=== PATIENT | male | born 1945 ===

== ENCOUNTER 2017-12-28 15:09 | Emergency (ER) | payer OTHER, MEDICARE ==
[2017-12-28 15:35] VITALS: BP 171/86; PULSE 104; RESP 16; TEMP 97.6; O2SAT 95
--- NOTE | 2017-12-28 16:46 | ED PDOC ---
HPI: Male Pain Time Seen by Provider: 12/28/17 15:50 Chief Complaint (Nursing): Abdominal Pain Chief Complaint (Provider): dysuria History Per: Patient History/Exam Limitations: no limitations Onset/Duration Of Symptoms: Persistent, Worse Since (x1) Current Symptoms Are (Timing): Still Present Additional Complaint(s): 72 year old male referred to emergency department by PMD for an evaluation of intermittent difficulty urinating associated with urgency and lower abdominal "fullness" worsening today. PMD: Curt Yao Urologist: Reji Brady MD Past Medical History Reviewed: Nursing Documentation, Vital Signs Vital Signs: Last Vital Signs Temp 97.6 F 12/28/17 15:31 Pulse 104 H 12/28/17 15:31 Resp 16 12/28/17 15:31 BP 171/86 H 12/28/17 15:31 Pulse Ox 95 12/28/17 15:31 - Family History Family History: States: Unknown Family Hx - Social History Current smoker - smoking cessation education provided: No Alcohol: None Drugs: Denies - Home Medications Home Medications: Ambulatory Orders Medication Instructions Recorded Ciprofloxacin HCl [Cipro] 500 mg PO BID #20 tab 12/28/17 Tamsulosin [Flomax] 0.4 mg PO DAILY #5 cap 12/28/17 - Allergies Allergies/Adverse Reactions: Allergies Allergy/AdvReac Type Severity Reaction Status Date / Time Sulfa (Sulfonamide Allergy ANAPHYLAXIS Verified 12/28/17 15:31 Antibiotics) Review of Systems ROS Statement: Except As Marked, All Systems Reviewed And Found Negative Gastrointestinal: Positive for: Abdominal Pain (lower fullness) Genitourinary Male: Positive for: Dysuria (with urgency) Physical Exam - Reviewed Nursing Documentation Reviewed: Yes Vital Signs Reviewed: Yes - Physical Exam Gastrointestinal/Abdominal: Positive for: Distended (suprapubic) Neurologic/Psych: Positive for: Alert - ECG O2 Sat by Pulse Oximetry: 95 (RA) Pulse Ox Interpretation: Normal Medical Decision Making Medical Decision Making: Initial Impression: Dysuria Time: 1640 --Urinary catheterization performed by provider. 16 Yi kwong catheter placed with 1200cc of clear, cristal urine removed. Scribe Attestation: Documented by Ting Raines, acting as a scribe for Conner Mena MD. Provider Scribe Attestation: All medical record entries made by the Scribe were at my direction and personally dictated by me. I have reviewed the chart and agree that the record accurately reflects my personal performance of the history, physical exam, medical decision making, and the department course for this patient. I have also personally directed, reviewed, and agree with the discharge instructions and disposition. Disposition - Clinical Impression Clinical Impression: Urinary retention - Patient ED Disposition Is Patient to be Admitted: No Counseled Patient/Family Regarding: Studies Performed, Diagnosis, Need For Followup, Rx Given - Disposition Referrals: Reji Brady MD [Medical Doctor] - Disposition: Routine/Home Disposition Time: 17:22 Condition: FAIR Prescriptions: Ciprofloxacin HCl [Cipro] 500 mg PO BID #20 tab Tamsulosin [Flomax] 0.4 mg PO DAILY #5 cap Instructions: Urinary Retention Forms: [facility] [employer] [facility] (Faroese) Print Language: BURMESE
== END 2017-12-28 18:21 | disposition home or self-care (01) ==
LOC: H.ER 15:09
DX: R33.9 Retention of urine, unspecified (principal)

== ENCOUNTER 2018-03-05 23:43 | Emergency (ER) | payer MEDICARE, OTHER ==
[2018-03-05 23:58] VITALS: RESP 18
[2018-03-06 01:50] LABS: BASO % 0.2 % (0.0-2.0); EOS # 0.1 K/uL (0.0-0.7); EOS % 0.6 % (0.0-4.0); HEMOGLOBIN 9.9 g/dL (12.0-18.0); LYMPH # 0.9 K/uL (1.0-4.3); LYMPH % 10.3 % (20.0-40.0); MEAN CELL VOLUME 83.7 fl (80.0-94.0); MEAN CORPUSCULAR HEMOGLOBIN 27.5 pg (27.0-31.0); MEAN CORPUSCULAR HGB CONC 32.8 g/dL (33.0-37.0); MEAN PLATELET VOLUME 7.2 fl (7.2-11.7); MONO # 0.6 K/uL (0.0-0.8); MONO % 7.1 % (0.0-10.0); NEUT % 81.8 % (50.0-75.0); RBC 3.6 Mil/uL (4.40-5.90); RED CELL DISTRIBUTION WIDTH 15.9 % (11.5-14.5); WHITE BLOOD COUNT 8.6 K/uL (4.8-10.8)
[2018-03-06 02:11] LABS: BLOOD UREA NITROGEN 29 mg/dl (9-20); CALCIUM 8.9 mg/dL (8.4-10.2); GFR AFRICAN-AMERICAN > 60; GFR NON-AFRICAN AMERICAN > 60
[2018-03-06] MEDS ORDERED: Potassium Chloride 20 mEq ER Tab PO ONE ×2 (02:17→03:06)
--- NOTE | 2018-03-06 02:41 | ED PDOC ---
HPI: Male Pain Time Seen by Provider: 03/06/18 00:15 Chief Complaint (Nursing): Male Genitourinary Chief Complaint (Provider): Difficulty Urinating History Per: Patient History/Exam Limitations: no limitations Onset/Duration Of Symptoms: Hrs Current Symptoms Are (Timing): Still Present Severity: Moderate Quality Of Discomfort: Pressure Associated Symptoms: Urinary Symptoms Additional History Per: Patient Additional Complaint(s): 72 y/o male who complains of difficulty urinating that started yesterday evening. He complains that he has to strain with urination but has suprapubic pain and dribbling. History of enlarged prostate and sees Dr. Brady. No vomiting, back pain, or other complaint. Past Medical History Vital Signs: Last Vital Signs Temp 99.9 F H 03/05/18 23:53 Pulse 115 H 03/05/18 23:53 Resp 18 03/05/18 23:53 BP 118/62 03/05/18 23:53 Pulse Ox 98 03/05/18 23:53 - Medical History PMH: Benign Prostatic Hyperplasia, HTN Other PMH: BPH - Surgical History Surgical History: No Surg Hx - Family History Family History: States: Unknown Family Hx - Social History Current smoker - smoking cessation education provided: No Ex-Smoker (has not smoked in the last 12 months): No Alcohol: None Drugs: Denies - Immunization History Hx Tetanus Toxoid Vaccination: No Hx Influenza Vaccination: No Hx Pneumococcal Vaccination: No - Home Medications Home Medications: Ambulatory Orders Medication Instructions Recorded Ciprofloxacin HCl [Cipro] 500 mg PO BID #20 tab 12/28/17 Tamsulosin [Flomax] 0.4 mg PO DAILY #5 cap 12/28/17 Ciprofloxacin HCl [Cipro] 500 mg PO BID #14 tablet 03/06/18 - Allergies Allergies/Adverse Reactions: Allergies Allergy/AdvReac Type Severity Reaction Status Date / Time Sulfa (Sulfonamide Allergy RASH Verified 03/05/18 23:58 Antibiotics) Review of Systems ROS Statement: Except As Marked, All Systems Reviewed And Found Negative Gastrointestinal: Positive for: Abdominal Pain Genitourinary Male: Positive for: Other (difficulty urinating) Physical Exam - Physical Exam Appears: Positive for: Well, Non-toxic, No Acute Distress Skin: Positive for: Normal Color, Warm, Dry Cardiovascular/Chest: Positive for: Regular Rate, Rhythm Respiratory: Positive for: Normal Breath Sounds Gastrointestinal/Abdominal: Positive for: Bowel Sounds (normal), Soft, Tenderness (suprapubic). Negative for: Distended Male Genital Exam: Positive for: other (urinating into diaper on exam) Neurologic/Psych: Positive for: Alert, Oriented - Laboratory Results Result Diagrams: 03/06/18 01:44 03/06/18 01:44 - ECG O2 Sat by Pulse Oximetry: 98 - Progress Re-evaluation Time: 07:10 Condition: Re-examined, Improved Medical Decision Making Medical Decision Making: Impression: Difficulty Urinating Differential Diagnosis: UTI, BPH, obstructive uropathy Plan: - Bladder Scan - 600mL shown - Flomax & Potassium Supplementation - UA On exam, patient able to urinate in ED and does not have absolute urinary retention. UA shows UTI. Attempted to place catheter but was unsuccessful. 06:08: Spoke with Dr. Brady who will come to the department and place a suprapubic catheter. 0710 Dr Brady performed suprapubic cystostomy in ED. Recommends cipro rx and discharge home. Scribe Attestation Documented by Yas Hook acting as a scribe for Kaylan Dong MD. Scribe Attestation All medical record entries made by the Scribe were at my direction and personally dictated by me. I have reviewed the chart and agree that the record accurately reflects my personal performance of the history, physical exam, medical decision making, and the department course for this patient. I have also personally directed, reviewed, and agree with the discharge instructions and disposition. Disposition - Clinical Impression Clinical Impression: Urinary tract infection, Urinary retention - Patient ED Disposition Is Patient to be Admitted: No Doctor Will See Patient In The: Office Counseled Patient/Family Regarding: Studies Performed, Diagnosis, Need For Followup - Disposition Referrals: Reji Brady MD [Medical Doctor] - Disposition: Routine/Home Disposition Time: 07:17 Condition: GOOD Additional Instructions: Take your medications as instructed. Follow up with your PCP in 2 days. Prescriptions: Ciprofloxacin HCl [Cipro] 500 mg PO BID #14 tablet Instructions: Urinary Tract Infections in Adults, Suprapubic Cystostomy, Urinary Retention Print Language: NEPALI
[2018-03-06] MEDS ORDERED: Morphine 4 MG/ML VIAL IVP ONE (03:58)
[2018-03-06] MEDS ORDERED: Morphine 4 MG/ML VIAL ONE (04:04)
[2018-03-06 04:39] VITALS: BP 138/72; PULSE 96; TEMP 97.6
[2018-03-06 04:49] VITALS: O2SAT 98
[2018-03-06] MEDS ORDERED: Povidone Iodine Topical 10% Sol ONE (06:50)
[2018-03-06] MEDS ORDERED: Lidocaine 1% Inj (20ml) ONE (06:58)
== END 2018-03-06 07:37 | disposition home or self-care (01) ==
LOC: H.ER 23:43
DX: N39.0 Urinary tract infection, site not specified (principal); N40.1 Benign prostatic hyperplasia with lower urinary tract symptoms; I10 Essential (primary) hypertension
CPT/HCPCS: 80048; 85025; 96374; 99283; J2270

== ENCOUNTER 2018-03-21 08:39 | Day surgery (SDC) | payer OTHER ==
[2018-03-15 08:59] VITALS: BMI 26.5
[2018-03-21] MEDS ORDERED: cefTRIAXone (Rocephin) 1 gm Inj IVPB ONE (10:23)
[2018-03-21] MEDS ORDERED: Lidocaine 2% Jelly (Uro-Jet) ONE (11:41)
[2018-03-21] MEDS ORDERED: Propofol 10 mg/ml Inj (20 ML) ONE ×2 (12:02→12:16)
[2018-03-21] MEDS ORDERED: Etomidate 20 mg/10ml Inj IV ONE (12:02)
[2018-03-21] MEDS ORDERED: Lidocaine 2% Jelly (5 ml) TOP ONE (12:05)
[2018-03-21] MEDS ORDERED: Phenylephrine 10 mg/ml Inj ONE (12:17)
[2018-03-21] MEDS ORDERED: Lidocaine 2% Jelly (Uro-Jet) TOP ONE (12:20)
[2018-03-21] MEDS ORDERED: Lactated Ringer's 1,000 ML IV ONE (12:20)
[2018-03-21] MEDS ORDERED: HYDROmorphone 0.5 mg/0.5 ml ISec IVP PRN (13:12)
[2018-03-21 15:14] VITALS: PULSE 93; O2SAT 96
[2018-03-21 15:19] VITALS: BP 104/59; RESP 18; TEMP 98.4
--- NOTE | 2018-03-21 22:06 | OP ---
PROCEDURE DATE: 03/21/2018 PREOPERATIVE DIAGNOSIS: Urinary retention. POSTOPERATIVE DIAGNOSIS: Urinary retention. PROCEDURE PERFORMED ON THE PATIENT: Cystoscopy with transurethral resection of prostate. DESCRIPTION OF PROCEDURE: The patient was placed on the operating room table in dorsal lithotomy position. He currently has a suprapubic tube in place from recent history of acute urinary retention. Following this and introducing the cystoscope and met resistance and so I used Jose sounds to calibrate the distal urethra to a size 26-Montenegrin. At this time, I inserted a 24-Montenegrin continuous flow resectoscope. At the level of the verumontanum, there was noted to be some regrowth of prostate, some on the 7 o'clock position and most of it is on the 2-4 o'clock position. I resected those areas widely cleared and removed all the fragments. Ureteral orifices were never in danger at this time. Verumontanum was circumferentially intact and did not bring the resection back to that area, removed the fragments. Estimated blood loss to be less than 20 mL, cauterized all the areas that I resected and then I removed the resectoscope, inserted a #22 three-way Lema at this time that was in good position and then I removed the suprapubic tube that was in preoperatively and the patient was taken from the operating room in good condition. Reji Brady MD
== END 2018-03-21 16:00 | disposition home or self-care (01) ==
LOC: H.OPSURG 08:39
PROVIDERS: ATTEND Urology
DX: R33.8 Other retention of urine (principal); E11.9 Type 2 diabetes mellitus without complications; I10 Essential (primary) hypertension; M54.9 Dorsalgia, unspecified
CPT/HCPCS: 53899; 82948; 88305; J0696; J2001; J2370; J2704; J3010; J7120

== ENCOUNTER 2018-03-25 16:47 | Inpatient (IN) | payer OTHER, MEDICARE ==
[2018-03-25 16:47] VITALS: BMI 26.5
[2018-03-25 18:17] LABS: BASO % 0.2 % (0.0-2.0); EOS % 0.2 % (0.0-4.0); HEMOGLOBIN 8.4 g/dL (12.0-18.0); LYMPH # 0.5 K/uL (1.0-4.3); LYMPH % 5.7 % (20.0-40.0); MEAN CELL VOLUME 81.3 fl (80.0-94.0); MEAN CORPUSCULAR HEMOGLOBIN 26.4 pg (27.0-31.0); MEAN CORPUSCULAR HGB CONC 32.5 g/dL (33.0-37.0); MEAN PLATELET VOLUME 7.4 fl (7.2-11.7); MONO # 0.7 K/uL (0.0-0.8); MONO % 8.5 % (0.0-10.0); NEUT # 7.5 K/uL (1.8-7.0); NEUT % 85.4 % (50.0-75.0); PLATELET COUNT 156 K/uL (130-400); RBC 3.18 Mil/uL (4.40-5.90); RED CELL DISTRIBUTION WIDTH 16.8 % (11.5-14.5); WHITE BLOOD COUNT 8.8 K/uL (4.8-10.8)
--- NOTE | 2018-03-25 18:19 | ED PDOC ---
HPI: Fever Fever Onset Was: 03/21/18 The Fever Was Measured: Rectal What Antipyretic Given Prior To Arrival: Acetaminophen, Ibuprofen Recent Sick Contacts: No Does Patient Have Hx Of Febrile Seizures: No Did The Patient Have A Seizure Today: No Symptoms Associated With Fever: Cough Past Medical History Reviewed: Nursing Documentation, Vital Signs, Unable To Obtain Vital Signs: Last Vital Signs Temp 98.4 F 03/25/18 17:07 Pulse 96 H 03/25/18 17:07 Resp 20 03/25/18 17:07 BP 122/55 L 03/25/18 17:07 Pulse Ox 96 03/25/18 18:19 - Medical History PMH: Arthritis (hands), Benign Prostatic Hyperplasia, HTN Denies: Chronic Kidney Disease - Family History Family History: States: Unknown Family Hx - Immunization History Hx Tetanus Toxoid Vaccination: No Hx Influenza Vaccination: No Hx Pneumococcal Vaccination: No - Home Medications Home Medications: Ambulatory Orders Medication Instructions Recorded Ciprofloxacin [Cipro] 500 mg PO Q12 03/21/18 Glimepiride [Amaryl] 1 mg PO DIN 03/25/18 MetFORMIN [glucoPHAGE] 1,000 mg PO BID 03/25/18 Multivitamin [Multi-Vitamin Daily] 1 tab PO DAILY 03/25/18 Tamsulosin [Flomax] 0.4 mg PO HS 03/25/18 Valsartan/Hydrochlorothiazide 1 tab PO DAILY 03/25/18 [Diovan Hct 160-25 mg Tablet] amLODIPine [Norvasc] 5 mg PO DAILY 03/25/18 - Allergies Allergies/Adverse Reactions: Allergies Allergy/AdvReac Type Severity Reaction Status Date / Time Sulfa (Sulfonamide Allergy RASH Verified 03/25/18 17:06 Antibiotics) Review of Systems ROS Statement: Except As Marked, All Systems Reviewed And Found Negative Constitutional: Positive for: Fever Respiratory: Positive for: Cough Physical Exam - Reviewed Nursing Documentation Reviewed: Yes Vital Signs Reviewed: Yes - Physical Exam Appears: Positive for: Well, Non-toxic, No Acute Distress. Negative for: Uncomfortable Head Exam: Positive for: ATRAUMATIC, NORMAL INSPECTION, NORMOCEPHALIC Skin: Positive for: Normal Color, Warm, Dry Eye Exam: Positive for: Normal appearance Neck: Positive for: Normal, Painless ROM, Supple. Negative for: Decreased ROM Cardiovascular/Chest: Positive for: Regular Rate, Rhythm. Negative for: Chest Non Tender, Edema, Gallop, Bradycardia, Tachycardia Respiratory: Positive for: Normal Breath Sounds. Negative for: Decreased Breath Sounds, Accessory Muscle Use, Crackles, Rales, Rhonchi, Stridor, Wheezing , Respiratory Distress Pulses-Carotid (L): 2+ Pulses-Carotid (R): 2+ Pulses-Radial (L): 2+ Pulses-Radial (R): 2+ - Laboratory Results Result Diagrams: 03/25/18 18:11 03/25/18 18:11 - ECG O2 Sat by Pulse Oximetry: 96 Disposition - Clinical Impression Clinical Impression: Urinary tract infection, SIRS (systemic inflammatory response syndrome), CHF ( congestive heart failure) Discussed With Dr.: Reji Brady (Request bloodwork and ABD CT) Doctor Will See Patient In The: ED - Disposition Disposition Time: 09:51 Condition: FAIR - Pt Status Changed To: Hospital Disposition Of: Inpatient - Admit Certification Admit to Inpatient:: After my assessment, the patient will require hospitalization for at least two midnights. This is because of the severity of symptoms shown, intensity of services needed, and/or the medical risk in this patient being treated as an outpatient.
[2018-03-25 18:23] LABS: ALBUMIN 2.9 g/dL (3.5-5.0); BLOOD UREA NITROGEN 34 mg/dl (9-20); CALCIUM 8.4 mg/dL (8.4-10.2); GFR AFRICAN-AMERICAN > 60; GFR NON-AFRICAN AMERICAN > 60
[2018-03-25 18:24] LABS: ALB/GLOB RATIO 0.8 (1.0-2.1); ALT/SGPT 42 U/L (21-72); AST/SGOT 30 U/L (17-59)
[2018-03-25] MEDS ORDERED: Sodium Chloride 0.9% 1,000 ML IV SCH (18:30)
[2018-03-25 19:11] LABS: SQUAMOUS EPITHIAL 1 /hpf (0-5); URINE BACTERIA OCC (<OCC); URINE BILIRUBIN NEGATIVE (NEGATIVE); URINE CLARITY CLOUDY (Clear); URINE COLOR YELLOW (YELLOW); URINE GLUCOSE (UA) NEG (Normal); URINE LEUKOCYTE ESTERASE LARGE Leu/uL (Negative); URINE PROTEIN 100 mg/dL (NEGATIVE); URINE UROBILINOGEN 0.2-1.0 mg/dL (0.2-1.0)
[2018-03-25 19:12] LABS: URINE BLOOD LARGE (NEGATIVE)
[2018-03-25 19:19] LABS: LYMPHOCYTE 7 % (20-50); MONOCYTE 7 % (0-10); NEUTROPHIL 86 % (42-75); TOTAL CELLS COUNTED 100
[2018-03-25 19:20] LABS: ANISOCYTOSIS SLIGHT; HYPOCHROMIC SLIGHT; OVALOCYTES SLIGHT; PLATELET ESTIMATE NORMAL (NORMAL); SCHISTOCYTES SLIGHT
[2018-03-25] MEDS ORDERED: Iohexol 300 100 ML IJ ONE (19:58)
[2018-03-25] MEDS ORDERED: Sodium Chloride 0.9% 50 ML IV ONE (19:58)
[2018-03-25] MEDS ORDERED: cefTRIAXone 2 GM in Sodium Chloride 0.9% 100 ML IVPB SCH (21:30)
[2018-03-25] MEDS ORDERED: cefTRIAXone 2 GM in Sodium Chloride 0.9% 100 ML IVPB STA (21:31)
--- NOTE | 2018-03-25 21:56 | CT ---
EXAM: CT Abdomen and Pelvis With Intravenous Contrast EXAM DATE/TIME: 03/25/2018 7:50 PM CLINICAL HISTORY: 72 years old, male; Signs and symptoms; Fever; Prior surgery; Surgery date: 1-6 months; Surgery type: Greenlight laser; Patient HX: Benign prostatic hyperplasia; Additional info: R/O infx TECHNIQUE: Axial computed tomography images of the abdomen and pelvis with intravenous contrast. All CT scans at this facility use one or more dose reduction techniques, viz.: automated exposure control; ma/kV adjustment per patient size (including targeted exams where dose is matched to indication; i.e. head); or iterative reconstruction technique. Coronal and sagittal reformatted images were created and reviewed. CONTRAST: 90 mL of [id number] administered intravenously. COMPARISON: No relevant prior studies available. FINDINGS: LIMITATIONS: Moderate streak/motion artifact. LUNG BASES: Left diaphragm is moderately elevated and PLEURAL SPACE: Small to moderate bilateral pleural effusions. HEART: Heart appears mildly enlarged. ABDOMEN: LIVER: 2 small low density liver lesions, most likely representing cysts. The larger of these measures 1.4 cm, and has a CT density compatible with simple fluid. GALLBLADDER AND BILE DUCTS: No CT evidence of acute cholecystitis. No evidence of significant biliary ductal dilatation. PANCREAS: No CT evidence of acute pancreatitis. SPLEEN: Small 8 mm low-density splenic lesion, most likely a cyst or hemangioma. ADRENALS: No acute abnormality of the adrenal glands identified. KIDNEYS AND URETERS: Large (10 x 9 cm) right renal cyst, which has a CT density compatible with a simple cyst. Multiple additional, smaller low density renal lesions seen bilaterally, likely also representing multiple renal cysts. The largest of these measures 1.3 cm. STOMACH AND BOWEL: Colonic diverticulosis, with no evidence of acute diverticulitis. Otherwise, no definite abnormality of the bowel identified, allowing for moderate motion artifact. No evidence of small bowel obstruction. PELVIS: APPENDIX: Normal appendix is not seen, and there are postsurgical changes near the cecum, which are likely from prior appendectomy. Recommend clinical correlation. BLADDER: Mild to moderate diffuse thickening of the bladder wall. There is also mild infiltration of fat adjacent to the left. Findings could be secondary to cystitis. REPRODUCTIVE: Mild, diffuse scrotal edema. No evidence of scrotal gas. Findings in the prostate gland likely related to prior TURP. Recommend clinical correlation. No evidence of hematoma or large fluid collection in the vicinity of the prostate gland. ABDOMEN and PELVIS: INTRAPERITONEAL SPACE: Tiny amount of free fluid in the pelvis. This is an abnormal finding in a male patient. No evidence of free air. BONES/JOINTS: No acute fractures or other acute bony abnormality noted. SOFT TISSUES: Left inguinal hernia, containing a small part of the sigmoid colon. No evidence of associated bowel obstruction. No CT findings to suggest hernia incarceration. VASCULATURE: No evidence of abdominal aortic aneurysm. No evidence of periaortic hemorrhage. LYMPH NODES: No evidence of diffuse lymphadenopathy. IMPRESSION: - Small to moderate bilateral pleural effusions. - Bladder findings which could represent cystitis. Recommend correlation with urinalysis results. - Tiny amount of free fluid in the pelvis. - Mild scrotal edema. No evidence of scrotal gas. - Otherwise, no evidence of significant acute process. - Findings compatible with previous TURP. No evidence of hematoma or fluid collection in the surgical bed. - See above for remaining findings.
[2018-03-25] MEDS ORDERED: Dexamethasone 10 MG in Sodium Chloride 0.9% 50 ML IV ONE (22:04)
[2018-03-25] MEDS ORDERED: Azithromycin 500 MG in Sodium Chloride 0.9% 250 ML IVPB STA (22:04)
--- NOTE | 2018-03-25 22:20 | ED PDOC ---
- Laboratory Results Result Diagrams: 03/25/18 18:11 03/25/18 18:11 - ECG O2 Sat by Pulse Oximetry: 96 Medical Decision Making Medical Decision Makin:00 Case endorsed to me from VERITO hernandez at [address] A/P results. Plan will be to admit the patient. Labs reviewed : wbc is wnl, chronic anemia, hyponatremia noted. VBG, blood cx, CXR, CT neck/chest ordered. CT A/P results still pending at this time. CT A/P: FINDINGS: LIMITATIONS: Moderate streak/motion artifact. LUNG BASES: Left diaphragm is moderately elevated and PLEURAL SPACE: Small to moderate bilateral pleural effusions. HEART: Heart appears mildly enlarged. ABDOMEN: LIVER: 2 small low density liver lesions, most likely representing cysts. The larger of these measures 1.4 cm, and has a CT density compatible with simple fluid. GALLBLADDER AND BILE DUCTS: No CT evidence of acute cholecystitis. No evidence of significant biliary ductal dilatation. PANCREAS: No CT evidence of acute pancreatitis. SPLEEN: Small 8 mm low-density splenic lesion, most likely a cyst or hemangioma. ADRENALS: No acute abnormality of the adrenal glands identified. KIDNEYS AND URETERS: Large (10 x 9 cm) right renal cyst, which has a CT density compatible with a simple cyst. Multiple additional, smaller low density renal lesions seen bilaterally, likely also representing multiple renal cysts. The largest of these measures 1.3 cm. STOMACH AND BOWEL: Colonic diverticulosis, with no evidence of acute diverticulitis. Otherwise, no definite abnormality of the bowel identified, allowing for moderate motion artifact. No evidence of small bowel obstruction. PELVIS: APPENDIX: Normal appendix is not seen, and there are postsurgical changes near the cecum, which are likely from prior appendectomy. Recommend clinical correlation. BLADDER: Mild to moderate diffuse thickening of the bladder wall. There is also mild infiltration of fat adjacent to the left. Findings could be secondary to cystitis. REPRODUCTIVE: Mild, diffuse scrotal edema. No evidence of scrotal gas. Findings in the prostate gland likely related to prior TURP. Recommend clinical correlation. No evidence of hematoma or large fluid collection in the vicinity of the prostate gland. ABDOMEN and PELVIS: INTRAPERITONEAL SPACE: Tiny amount of free fluid in the pelvis. This is an abnormal finding in a male patient. No evidence of free air. BONES/JOINTS: No acute fractures or other acute bony abnormality noted. SOFT TISSUES: Left inguinal hernia, containing a small part of the sigmoid colon. No evidence of associated bowel obstruction. No CT findings to suggest hernia incarceration. VASCULATURE: No evidence of abdominal aortic aneurysm. No evidence of periaortic hemorrhage. LYMPH NODES: No evidence of diffuse lymphadenopathy. IMPRESSION: - Small to moderate bilateral pleural effusions. - Bladder findings which could represent cystitis. Recommend correlation with urinalysis results. - Tiny amount of free fluid in the pelvis. - Mild scrotal edema. No evidence of scrotal gas. - Otherwise, no evidence of significant acute process. - Findings compatible with previous TURP. No evidence of hematoma or fluid collection in the surgical bed. - See above for remaining findings. Dictated and Authenticated by: Anabell Babin MD 03/25/2018 9:56 PM Eastern Time ([place] & [place]) 22:00 CT A/P results reviewed. CXR : +cardiomegaly, +increase vascular markings, elevated L hemidiaphragm. CXR sent to [facility]. CT/CXR results reviewed with ER MD. On re-evaluation, patient is sitting up comfortably in no acute distress, no drooling, speaking in full sentences, (+) croup like cough noted. He reports no chest pain or SOB, only fever and cough x 5 days. On exam, patient remains AAOx3 , in no acute distress. Lungs +mild accessory muscle use at the neck, +decrease in BS b/l especially at the lung bases, +scattered rhonchi, cardiac tachycardic , abdomen soft, non-tender, repeat neuro exam shows no focal findings. Decadron IV, zithromax IV, heliox ordered. Diagnostic results d/w the patient in great detail. Diagnosis of early sepsis, UTI, possible pneumonia d/w the patient. Based on history, exam and diagnostic results, plan will be for inpatient admission. Case d/w Dr. Yao, agrees with plan, patient admitted. Bridge orders and consult with uro Dr. Brady ordered. Patient states he fully agrees with and understands further plan of care. I have given the patient opportunity to ask any additional questions. 22:30 VBG : lactic 1.3 23:00 CXR : FINDINGS: LUNGS: Findings suspicious for mild pulmonary vascular congestion/CHF. There is mild, diffuse pulmonary interstitial prominence, a new finding. No evidence of a large focal consolidation/infiltrate in the lungs. PLEURAL SPACE: The small bilateral pleural effusions visualized on the recent CT abdomen are not well seen radiographically No pneumothorax is seen. HEART: Heart appears mild to moderately enlarged. This was also seen on the prior exam. MEDIASTINUM: Moderate ectasia of the thoracic aorta noted.. BONES/JOINTS: No acute bony abnormality visualized. UPPER ABDOMEN: Left diaphragm is moderately elevated, similar to the prior exam. IMPRESSION: - Findings suspicious for mild pulmonary vascular congestion/CHF. - Cardiomegaly, also seen on a prior exam. - See above for remaining findings. Dictated and Authenticated by: Anabell Babin MD 03/25/2018 10:32 PM Eastern Time ([place] & [place]) EKG, trop, BNP ordered. 23:30 Patient reports only medical h/o DM, HTN, admits to a h/o CHF but denies taking any diuretics. Reports no chest pain or SOB. On re-evaluation, patient resting comfortably in bed. On exam, patient remains AAOx3, in mild respiratory distress distress. P 111 O2sat 94% on heliox. LE : + 2+ pitting edema noted. lasix 40 mg IV ordered. 23:45 trop +, BNP 2200. Repeat EKG ordered. Pt given asa po and nitropaste. Dr. Yao called and made aware of patient's change in status, requesting consult with cardiology with Dr. Bennett. Case d/w Dr. Bennett, agrees with current plan. Repeat EKG : ST at 101 bpm, no acute ST changes, as read by PA. Disposition Counseled Patient/Family Regarding: Studies Performed, Diagnosis - Clinical Impression Clinical Impression: Urinary tract infection, SIRS (systemic inflammatory response syndrome), CHF ( congestive heart failure) - POA Present On Arrival: None - Disposition Disposition: Admitted as In-Patient Disposition Time: 22:00 Condition: FAIR - PA / ADMINISTRATIVE VOLUNTEER / Resident Statement / has reviewed & agrees with the documentation as recorded.
[2018-03-25 22:22] LABS: VENOUS BLOOD GAS BASE EXCESS 2.5 mmol/L (0.0-2.0); VENOUS BLOOD GAS PCO2 37 mmHg (40-60); VENOUS BLOOD GAS PO2 35 mm/Hg (30-55); VENOUS BLOOD PH 7.46 (7.32-7.43)
--- NOTE | 2018-03-25 22:33 | RAD ---
EXAM: XR Chest, 1 View EXAM DATE/TIME: 03/25/2018 9:31 PM CLINICAL HISTORY: 72 years old, male; Signs and symptoms; Cough and fever; Symptoms not specified; Additional info: Fever, cough TECHNIQUE: Frontal view of the chest. COMPARISON: Prior chest radiographs of 03/15/2018. The lung base findings of a CT abdomen done just prior to this exam were also reviewed. FINDINGS: LUNGS: Findings suspicious for mild pulmonary vascular congestion/CHF. There is mild, diffuse pulmonary interstitial prominence, a new finding. No evidence of a large focal consolidation/infiltrate in the lungs. PLEURAL SPACE: The small bilateral pleural effusions visualized on the recent CT abdomen are not well seen radiographically No pneumothorax is seen. HEART: Heart appears mild to moderately enlarged. This was also seen on the prior exam. MEDIASTINUM: Moderate ectasia of the thoracic aorta noted.. BONES/JOINTS: No acute bony abnormality visualized. UPPER ABDOMEN: Left diaphragm is moderately elevated, similar to the prior exam. IMPRESSION: - Findings suspicious for mild pulmonary vascular congestion/CHF. - Cardiomegaly, also seen on a prior exam. - See above for remaining findings.
[2018-03-25] MEDS ORDERED: Azithromycin 500 MG IV IVPB ONE (22:53)
[2018-03-25 23:51] LABS: TROPONIN I 0.148 ng/mL (0.00-0.120)
[2018-03-25] MEDS ORDERED: Nitroglycerin 2% Ointment Foilpak UD TOP STA (23:56)
[2018-03-26] MEDS ORDERED: Nitroglycerin 2% Ointment Foilpak UD TOP ONE (00:03)
[2018-03-26 05:01] LABS: TROPONIN I 0.171 ng/mL (0.00-0.120)
[2018-03-26] MEDS ORDERED: Pneumococcal 23-Valent Vaccine IM ONE (06:02)
[2018-03-26] MEDS: Enoxaparin 40 mg Syringe SC SCH (08:29)
[2018-03-26] MEDS: GlipiZIDE 2.5 mg SR Tab PO SCH (08:29)
[2018-03-26] MEDS: Insulin Regular 100 units/ml SC SCH ×4 (08:33→22:45)
[2018-03-26] MEDS ORDERED: Patient's Own Med (Valsartan/Hydrochlorothiazide [Diovan Hct 160-25 Mg Tablet] 1 TAB) PO SCH (09:00)
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
[2018-03-26] MEDS ORDERED: Azithromycin 500 MG in Sodium Chloride 0.9% 250 ML IVPB SCH (10:00)
--- NOTE | 2018-03-26 10:50 | CARD ---
APPROVED REPORT EKG Measurement Heart [id number] <Conclusion> Sinus tachycardia Otherwise normal ECG
--- NOTE | 2018-03-26 10:55 | CARD ---
APPROVED REPORT EKG Measurement Heart [id number] <Conclusion> Sinus tachycardia Nonspecific ST abnormality Abnormal ECG
--- NOTE | 2018-03-26 11:54 | CARD ---
APPROVED REPORT EXAM: Two-dimensional and M-mode echocardiogram with Doppler and color Doppler. Other Information Quality : PoorRhythm : INDICATION Dyspnea Congestive Heart Failure 2D DIMENSIONS IVSd0.84 (0.7-1.1cm)LVDd5.19 (3.9-5.9cm) PWd0.82 (0.7-1.1cm)LVDs4.15 (2.5-4.0cm) FS (%) 20.1 % M-Mode DIMENSIONS Left Atrium (MM)3.91 (2.5-4.0cm)IVSd1.03 (0.7-1.1cm) Aortic Root3.45 (2.2-3.7cm)LVDd7.15 (4.0-5.6cm) Aortic Cusp Exc.2.31 (1.5-2.0cm)PWd1.00 (0.7-1.1cm) FS (%) 18 %LVDs5.87 (2.0-3.8cm) Aortic Valve AI P 1/2 [id number] Mitral Valve MV E Cmxfetri62.0cm/sMV DECEL [id number] A Babcnkiz343.2cm/s MV ODC15ngF/A ratio0.9MVA (PHT)3.36cm2 TDI Lateral E' Peak V9.61cm/sMedial E' Peak V6.76cm/sE/Lateral E'9.6 E/Medial E'13.6 Tricuspid Valve TR Peak Rldeszzy315pt/sTR Peak Gr.38mmHg LEFT VENTRICLE The left ventricle is normal size. There is normal left ventricular wall thickness. Left ventricle systolic function is grossly normal. The Ejection Fraction is 55-60%. There is normal LV segmental wall motion. Transmitral Doppler flow pattern is Grade I-abnormal relaxation pattern. RIGHT VENTRICLE The right ventricle is normal size. There is normal right ventricular wall thickness. The right ventricular systolic function is normal. ATRIA The left atrium size is normal. The right atrium size is normal. AORTIC VALVE The aortic valve is mildly sclerotic. The aortic valve is trileaflet. An echodense body (approx 10X2 mm) was seen prolapsing into the LV out flow rract during diastole. Strongly suggestive of a vegetation. There is moderate to severe aortic regurgitation. There is no aortic valvular stenosis. MITRAL VALVE The mitral valve is normal in structure. There is no evidence of mitral valve prolapse. There is no mitral valve stenosis. Mitral regurgitation is trace to mild. TRICUSPID VALVE The tricuspid valve is normal in structure. There is trace to mild tricuspid regurgitation. PULMONIC VALVE The pulmonary valve is normal in structure. There is no pulmonic valvular regurgitation. GREAT VESSELS The aortic root is normal in size. The IVC is normal in size and collapses >50% with inspiration. PERICARDIAL EFFUSION The pericardium appears normal. <Conclusion> The left ventricle is normal size. There is normal left ventricular wall thickness. There is normal LV segmental wall motion. Left ventricle systolic function is grossly normal. The Ejection Fraction is 55-60%. Transmitral Doppler flow pattern is Grade I-abnormal relaxation pattern. An echodense body (approx 10X2 mm) was seen prolapsing into the LV out flow rract during diastole. Strongly suggestive of a vegetation. (Discussed the finding with PCP)
[2018-03-26] MEDS ORDERED: Meropenem 500 MG in Sodium Chloride 0.9% 100 ML IVPB SCH (16:00)
[2018-03-26] MEDS: Meropenem 500 MG in Sodium Chloride 0.9% 100 ML IVPB SCH ×2 (16:19→21:16)
[2018-03-27] MEDS: Meropenem 500 MG in Sodium Chloride 0.9% 100 ML IVPB SCH ×4 (03:07→21:35)
[2018-03-27 06:57] LABS: BASO % 0.1 % (0.0-2.0); HEMOGLOBIN 8.3 g/dL (12.0-18.0); LYMPH # 0.7 K/uL (1.0-4.3); LYMPH % 7.2 % (20.0-40.0); MEAN CELL VOLUME 80.7 fl (80.0-94.0); MEAN CORPUSCULAR HEMOGLOBIN 26.4 pg (27.0-31.0); MEAN CORPUSCULAR HGB CONC 32.8 g/dL (33.0-37.0); MEAN PLATELET VOLUME 7.8 fl (7.2-11.7); MONO # 0.9 K/uL (0.0-0.8); MONO % 8.8 % (0.0-10.0); NEUT # 8.2 K/uL (1.8-7.0); NEUT % 83.9 % (50.0-75.0); RBC 3.15 Mil/uL (4.40-5.90); RED CELL DISTRIBUTION WIDTH 17.2 % (11.5-14.5); WHITE BLOOD COUNT 9.8 K/uL (4.8-10.8)
[2018-03-27 07:11] LABS: BLOOD UREA NITROGEN 47 mg/dl (9-20); CALCIUM 8.1 mg/dL (8.4-10.2); GFR AFRICAN-AMERICAN > 60; GFR NON-AFRICAN AMERICAN > 60
[2018-03-27] MEDS: GlipiZIDE 2.5 mg SR Tab PO SCH (09:05)
[2018-03-27] MEDS: Insulin Regular 100 units/ml SC SCH ×4 (09:06→22:51)
[2018-03-27] MEDS: Enoxaparin 40 mg Syringe SC SCH (09:06)
--- NOTE | 2018-03-27 09:42 | CP.PCM.PN ---
Subjective - Date & Time of Evaluation Date of Evaluation: 03/27/18 Time of Evaluation: 09:43 - Subjective Subjective: CLAIMS THAT HE FEELS BETTER APPETITE IS IMPROVING NO FEVER TODAY NO CHEST PAINS/SOB Objective - Vital Signs/Intake and Output Vital Signs (last 24 hours): Temp Pulse Resp BP Pulse Ox 97.5 F L 83 18 99/50 L 96 03/27/18 08:00 03/27/18 08:00 03/27/18 08:00 03/27/18 09:11 03/27/18 08:00 - Medications Medications: Current Medications Aspirin (Ecotrin) 81 mg PO DAILY [facility] Last Admin: 03/27/18 09:05 Dose: 81 mg Atorvastatin Calcium (Lipitor) 20 mg PO DAILY [facility] Last Admin: 03/27/18 09:06 Dose: 20 mg Enoxaparin Sodium (Lovenox) 40 mg SC DAILY [facility] PRN Reason: Protocol Last Admin: 03/27/18 09:06 Dose: 40 mg Famotidine (Pepcid) 20 mg PO BID [facility] Last Admin: 03/27/18 09:05 Dose: 20 mg Furosemide (Lasix) 40 mg IV DAILY [facility] Last Admin: 03/27/18 09:11 Dose: Not Given Glipizide (Glucotrol Xl) 2.5 mg PO BRK [facility] Last Admin: 03/27/18 09:05 Dose: 2.5 mg Meropenem 500 mg/ Sodium (Chloride) 100 mls @ 100 mls/hr IVPB Q6 [facility] PRN Reason: Protocol Last Admin: 03/27/18 09:03 Dose: 100 mls/hr Vancomycin HCl 1 gm/ Sodium (Chloride) 250 mls @ 166.667 mls/hr IVPB Q12@0500, 1700 [facility] PRN Reason: Protocol Last Admin: 03/27/18 04:14 Dose: 166.667 mls/hr Insulin Human Regular (Humulin R) 0 units SC ACHS [facility] PRN Reason: Protocol Last Admin: 03/27/18 09:06 Dose: Not Given Metformin HCl (Glucophage) 1,000 mg PO BID [facility] Last Admin: 03/27/18 09:05 Dose: 1,000 mg Tamsulosin HCl (Flomax) 0.4 mg PO HS [facility] Last Admin: 03/26/18 21:20 Dose: 0.4 mg Valsartan (Diovan) 160 mg PO DAILY [facility] Last Admin: 03/27/18 09:11 Dose: Not Given - Labs Labs: 03/27/18 05:45 03/27/18 05:45 - Constitutional Appears: No Acute Distress - Head Exam Head Exam: ATRAUMATIC, NORMAL INSPECTION, NORMOCEPHALIC - Eye Exam Eye Exam: EOMI, Normal appearance, PERRL Pupil Exam: NORMAL ACCOMODATION, PERRL - ENT Exam ENT Exam: Mucous Membranes Moist, Normal Exam - Neck Exam Neck Exam: Full ROM, Normal Inspection. absent: Lymphadenopathy - Respiratory Exam Respiratory Exam: Rales, NORMAL BREATHING PATTERN - Cardiovascular Exam Cardiovascular Exam: REGULAR RHYTHM, +S1, +S2. absent: Murmur - GI/Abdominal Exam GI & Abdominal Exam: Soft, Normal Bowel Sounds. absent: Tenderness - Rectal Exam Rectal Exam: NORMAL INSPECTION - Extremities Exam Extremities Exam: Full ROM, Normal Capillary Refill, Normal Inspection, Pedal Edema. absent: Joint Swelling - Back Exam Back Exam: NORMAL INSPECTION - Neurological Exam Neurological Exam: Alert, Awake, CN II-XII Intact, Normal Gait, Oriented x3 - Psychiatric Exam Psychiatric exam: Normal Affect, Normal Mood - Skin Skin Exam: Dry, Intact, Normal Color, Warm Assessment and Plan - Assessment and Plan (Free Text) Assessment: AORTIC VALVE ENDOCARDITIS CHF SEPSIS DIABETES TYPE 2 WITH HYPERGLYCEMIA HYPERTENSION--HYPOTENSION URINARY RETENTION ANEMIA HYPONATREMIA Plan: CONTINUE IV ANTIBIOTIC RX WILL REQUEST HEMATOLOGY EVAL RE-ANEMIA CASE EXPLAINED TO PT
--- NOTE | 2018-03-27 12:11 | CP.PCM.PN ---
Subjective - Date & Time of Evaluation Date of Evaluation: 03/27/18 Time of Evaluation: 12:00 - Subjective Subjective: patietn denies chest pain. less dyspnea Objective - Vital Signs/Intake and Output Vital Signs (last 24 hours): Temp Pulse Resp BP Pulse Ox 97.4 F L 89 18 100/49 L 97 03/27/18 11:52 03/27/18 11:52 03/27/18 11:52 03/27/18 11:52 03/27/18 11:52 - Medications Medications: Current Medications Aspirin (Ecotrin) 81 mg PO DAILY [facility] Last Admin: 03/27/18 09:05 Dose: 81 mg Atorvastatin Calcium (Lipitor) 20 mg PO DAILY [facility] Last Admin: 03/27/18 09:06 Dose: 20 mg Enoxaparin Sodium (Lovenox) 40 mg SC DAILY [facility] PRN Reason: Protocol Last Admin: 03/27/18 09:06 Dose: 40 mg Famotidine (Pepcid) 20 mg PO BID [facility] Last Admin: 03/27/18 09:05 Dose: 20 mg Furosemide (Lasix) 40 mg IV DAILY [facility] Last Admin: 03/27/18 09:11 Dose: Not Given Glipizide (Glucotrol Xl) 2.5 mg PO BRK [facility] Last Admin: 03/27/18 09:05 Dose: 2.5 mg Meropenem 500 mg/ Sodium (Chloride) 100 mls @ 100 mls/hr IVPB Q6 [facility] PRN Reason: Protocol Last Admin: 03/27/18 09:03 Dose: 100 mls/hr Vancomycin HCl 1 gm/ Sodium (Chloride) 250 mls @ 166.667 mls/hr IVPB Q12@0500, 1700 [facility] PRN Reason: Protocol Last Admin: 03/27/18 04:14 Dose: 166.667 mls/hr Insulin Human Regular (Humulin R) 0 units SC ACHS [facility] PRN Reason: Protocol Last Admin: 03/27/18 09:06 Dose: Not Given Metformin HCl (Glucophage) 1,000 mg PO BID [facility] Last Admin: 03/27/18 09:05 Dose: 1,000 mg Tamsulosin HCl (Flomax) 0.4 mg PO HS [facility] Last Admin: 03/26/18 21:20 Dose: 0.4 mg Valsartan (Diovan) 160 mg PO DAILY [facility] Last Admin: 03/27/18 09:11 Dose: Not Given Valsartan (Diovan) 40 mg PO DAILY [facility] - Labs Labs: 03/27/18 05:45 03/27/18 05:45 - Constitutional Appears: Non-toxic - Head Exam Head Exam: NORMAL INSPECTION - Eye Exam Eye Exam: Normal appearance - ENT Exam ENT Exam: Mucous Membranes Moist - Neck Exam Neck Exam: Full ROM - Respiratory Exam Respiratory Exam: Decreased Breath Sounds - Cardiovascular Exam Cardiovascular Exam: REGULAR RHYTHM - GI/Abdominal Exam GI & Abdominal Exam: Normal Bowel Sounds - Rectal Exam Rectal Exam: Deferred - Extremities Exam Extremities Exam: Pedal Edema - Back Exam Back Exam: NORMAL INSPECTION - Neurological Exam Neurological Exam: Alert - Psychiatric Exam Psychiatric exam: Normal Affect - Skin Skin Exam: Normal Color Assessment and Plan (1) CHF (congestive heart failure) Assessment & Plan: reviewed echocardiogrm. LV function is normal Status: Acute (2) Endocarditis Assessment & Plan: recommend manager long term care antibiotic therapy. will repeat blood cultures. no immediate indication for aortic vlve replacement, although I have discussed surgical inidcations with the patient. Status: Acute
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
[2018-03-27] MEDS ORDERED: Iohexol 300 100 ML IJ ONE (17:24)
[2018-03-27] MEDS ORDERED: Sodium Chloride 0.9% 100 ML ONE (17:24)
[2018-03-28] MEDS: Meropenem 500 MG in Sodium Chloride 0.9% 100 ML IVPB SCH ×4 (03:54→21:44)
[2018-03-28] MEDS: Insulin Regular 100 units/ml SC SCH ×4 (06:30→22:59)
[2018-03-28] MEDS: GlipiZIDE 2.5 mg SR Tab PO SCH (09:23)
[2018-03-28] MEDS: Enoxaparin 40 mg Syringe SC SCH (09:24)
--- NOTE | 2018-03-28 09:29 | CT ---
PROCEDURE: CT Chest with contrast HISTORY: r/o infx COMPARISON: None. TECHNIQUE: Contiguous axial images were obtained through the chest with intravenous contrast enhancement. Sagittal and coronal reconstructions were performed. IV contrast: Radiation dose (DLP): mGy-cm. This CT exam was performed using one or more of the following dose reduction techniques: Automated exposure control, adjustment of the mA and/or kV according to patient size, and/or use of iterative reconstruction technique. FINDINGS: LUNGS: The lungs are clear. There is a 3 mm subpleural nodule in the lingula. There is subsegmental atelectasis in the lower lobes. No focal consolidation or pulmonary edema. MEDIASTINUM: The aorta is not dilated. The heart is top limits of normal. No pericardial effusion. No pathologic adenopathy. PLEURA: Moderate pleural effusions. No pneumothorax. BONES: No fracture. No destructive lesion. Within normal limits for the patient's age. UPPER ABDOMEN: Grossly unremarkable. OTHER FINDINGS: There is elevation of the left hemidiaphragm. . IMPRESSION: No evidence for pulmonary edema. Moderate pleural effusions. No consolidation.
--- NOTE | 2018-03-28 09:33 | CT ---
PROCEDURE: CT NECK WITH CONTRAST HISTORY: r/o ifx COMPARISON: None TECHNIQUE: CT of the neck with intravenous contrast. Coronal and sagittal reformats generated. Intravenous contrast dose: 40 cc Omnipaque Radiation dose: DLP 630.71 mGy-cm This CT exam was performed using one or more of the following dose reduction techniques: Automated exposure control, adjustment of the mA and/or kV according to patient size, and/or use of iterative reconstruction technique. FINDINGS: NASOPHARYNX: Unremarkable. SUPRAHYOID NECK: Unremarkable oropharynx, oral cavity, parapharyngeal space and retropharyngeal space. INFRAHYOID NECK: Unremarkable larynx, hypopharynx, and supraglottic space. Vocal cords intact. MASS: None. GLANDS: Parotid and submandibular glands unremarkable. Normal size thyroid gland, without nodule. LYMPH NODES: Normal. No lymphadenopathy. CERVICAL SPINE: No fracture or focal lesion. Mild multilevel degenerative disc disease. VASCULAR STRUCTURES: Unremarkable. OTHER FINDINGS: There is a large mucous retention cyst in the right maxillary sinus with IMPRESSION: No evidence for mass, abscess or adenopathy. A preliminary report was provided by [facility].
--- NOTE | 2018-03-28 11:20 | CP.PCM.PN ---
Subjective - Date & Time of Evaluation Date of Evaluation: 03/28/18 Time of Evaluation: 11:20 - Subjective Subjective: OOB TO CHAIR SOB IMPROVING NO CHEST PAINS PEDAL EDEMA PERSISTS CASE DISCUSSED WITH PT AND FAMILY Objective - Vital Signs/Intake and Output Vital Signs (last 24 hours): Temp Pulse Resp BP Pulse Ox 97.4 F L 90 18 121/61 97 03/28/18 08:00 03/28/18 09:00 03/28/18 08:00 03/28/18 09:24 03/28/18 08:00 Intake and Output: 03/28/18 03/28/18 06:59 18:59 Intake Total 750 Output Total 1600 Balance -850 - Medications Medications: Current Medications Acetaminophen (Tylenol 325mg Tab) 650 mg PO Q6 PRN PRN Reason: Pain, Mild (1-3) Last Admin: 03/27/18 22:57 Dose: 650 mg Aspirin (Ecotrin) 81 mg PO DAILY [facility] Last Admin: 03/28/18 09:23 Dose: 81 mg Atorvastatin Calcium (Lipitor) 20 mg PO DAILY [facility] Last Admin: 03/28/18 09:24 Dose: 20 mg Enoxaparin Sodium (Lovenox) 40 mg SC DAILY [facility] PRN Reason: Protocol Last Admin: 03/28/18 09:24 Dose: 40 mg Famotidine (Pepcid) 20 mg PO BID [facility] Last Admin: 03/28/18 09:23 Dose: 20 mg Furosemide (Lasix) 40 mg IV DAILY [facility] Last Admin: 03/28/18 09:24 Dose: 40 mg Glipizide (Glucotrol Xl) 2.5 mg PO BRK [facility] Last Admin: 03/28/18 09:23 Dose: 2.5 mg Meropenem 500 mg/ Sodium (Chloride) 100 mls @ 100 mls/hr IVPB Q6 [facility] PRN Reason: Protocol Last Admin: 03/28/18 09:25 Dose: 100 mls/hr Vancomycin HCl 1 gm/ Sodium (Chloride) 250 mls @ 166.667 mls/hr IVPB Q12@0500, 1700 [facility] PRN Reason: Protocol Last Admin: 03/28/18 05:19 Dose: 166.667 mls/hr Insulin Human Regular (Humulin R) 0 units SC ACHS [facility] PRN Reason: Protocol Last Admin: 03/28/18 06:30 Dose: Not Given Metformin HCl (Glucophage) 1,000 mg PO BID [facility] Last Admin: 03/28/18 09:23 Dose: 1,000 mg Tamsulosin HCl (Flomax) 0.4 mg PO HS [facility] Last Admin: 03/27/18 21:35 Dose: 0.4 mg Valsartan (Diovan) 40 mg PO DAILY [facility] Last Admin: 03/28/18 09:23 Dose: 40 mg - Labs Labs: 03/27/18 05:45 03/27/18 05:45 - Constitutional Appears: No Acute Distress - Head Exam Head Exam: ATRAUMATIC, NORMAL INSPECTION, NORMOCEPHALIC - Eye Exam Eye Exam: EOMI, Normal appearance, PERRL Pupil Exam: NORMAL ACCOMODATION, PERRL - ENT Exam ENT Exam: Mucous Membranes Moist, Normal Exam - Neck Exam Neck Exam: Full ROM, Normal Inspection. absent: Lymphadenopathy - Respiratory Exam Respiratory Exam: Rales, NORMAL BREATHING PATTERN - Cardiovascular Exam Cardiovascular Exam: REGULAR RHYTHM, +S1, +S2. absent: Murmur - GI/Abdominal Exam GI & Abdominal Exam: Soft, Normal Bowel Sounds. absent: Tenderness - Rectal Exam Rectal Exam: NORMAL INSPECTION - Extremities Exam Extremities Exam: Full ROM, Normal Capillary Refill, Normal Inspection, Pedal Edema. absent: Joint Swelling - Back Exam Back Exam: NORMAL INSPECTION - Neurological Exam Neurological Exam: Alert, Awake, CN II-XII Intact, Normal Gait, Oriented x3 - Psychiatric Exam Psychiatric exam: Normal Affect, Normal Mood - Skin Skin Exam: Dry, Intact, Normal Color, Warm Assessment and Plan - Assessment and Plan (Free Text) Assessment: CHF ENDOCARDITIS DM HTN URINARY RETENTION ANEMIA Plan: CONTINUE CURRENT RX IV ANTIBIOTICS
[2018-03-28 12:27] LABS: FOLATE 15.8 ng/mL
[2018-03-29] MEDS: Meropenem 500 MG in Sodium Chloride 0.9% 100 ML IVPB SCH ×2 (04:13→11:25)
[2018-03-29] MEDS: Insulin Regular 100 units/ml SC SCH ×4 (06:33→22:00)
[2018-03-29] MEDS: GlipiZIDE 2.5 mg SR Tab PO SCH (08:34)
[2018-03-29] MEDS: Enoxaparin 40 mg Syringe SC SCH (08:35)
--- NOTE | 2018-03-29 08:58 | CP.PCM.PN ---
Subjective - Date & Time of Evaluation Date of Evaluation: 03/29/18 Time of Evaluation: 09:02 - Subjective Subjective: STILL WEAK APPETITE POOR BUT IMPROVING SOB LESS DYSPNEA Objective - Vital Signs/Intake and Output Vital Signs (last 24 hours): Temp Pulse Resp BP Pulse Ox 97.9 F 85 18 122/61 97 03/29/18 07:50 03/29/18 07:50 03/29/18 07:50 03/29/18 08:34 03/29/18 07:50 - Medications Medications: Current Medications Acetaminophen (Tylenol 325mg Tab) 650 mg PO Q6 PRN PRN Reason: Pain, Mild (1-3) Last Admin: 03/29/18 01:30 Dose: 650 mg Aspirin (Ecotrin) 81 mg PO DAILY [facility] Last Admin: 03/29/18 08:33 Dose: 81 mg Atorvastatin Calcium (Lipitor) 20 mg PO DAILY [facility] Last Admin: 03/29/18 08:34 Dose: 20 mg Enoxaparin Sodium (Lovenox) 40 mg SC DAILY [facility] PRN Reason: Protocol Last Admin: 03/29/18 08:35 Dose: 40 mg Famotidine (Pepcid) 20 mg PO BID [facility] Last Admin: 03/29/18 08:35 Dose: 20 mg Furosemide (Lasix) 40 mg IV DAILY [facility] Last Admin: 03/29/18 08:34 Dose: 40 mg Glipizide (Glucotrol Xl) 2.5 mg PO BRK [facility] Last Admin: 03/29/18 08:34 Dose: 2.5 mg Meropenem 500 mg/ Sodium (Chloride) 100 mls @ 100 mls/hr IVPB Q6 [facility] PRN Reason: Protocol Last Admin: 03/29/18 04:13 Dose: 100 mls/hr Vancomycin HCl 1 gm/ Sodium (Chloride) 250 mls @ 166.667 mls/hr IVPB Q12@0500, 1700 [facility] PRN Reason: Protocol Last Admin: 03/29/18 05:25 Dose: 166.667 mls/hr Insulin Human Regular (Humulin R) 0 units SC ACHS [facility] PRN Reason: Protocol Last Admin: 03/29/18 06:33 Dose: Not Given Metformin HCl (Glucophage) 1,000 mg PO BID [facility] Last Admin: 03/29/18 08:33 Dose: 1,000 mg Tamsulosin HCl (Flomax) 0.4 mg PO HS [facility] Last Admin: 03/28/18 21:45 Dose: 0.4 mg Valsartan (Diovan) 40 mg PO DAILY [facility] Last Admin: 03/29/18 08:33 Dose: 40 mg - Labs Labs: 03/27/18 05:45 03/27/18 05:45 - Constitutional Appears: Chronically Ill - Head Exam Head Exam: ATRAUMATIC, NORMAL INSPECTION, NORMOCEPHALIC - Eye Exam Eye Exam: EOMI, Normal appearance, PERRL Pupil Exam: NORMAL ACCOMODATION, PERRL - ENT Exam ENT Exam: Mucous Membranes Moist, Normal Exam - Neck Exam Neck Exam: Full ROM, Normal Inspection. absent: Lymphadenopathy - Respiratory Exam Respiratory Exam: Prolonged Expiratory Phase, Rales, NORMAL BREATHING PATTERN - Cardiovascular Exam Cardiovascular Exam: REGULAR RHYTHM, +S1, +S2. absent: Murmur - GI/Abdominal Exam GI & Abdominal Exam: Soft, Normal Bowel Sounds. absent: Tenderness - Rectal Exam Rectal Exam: NORMAL INSPECTION - Extremities Exam Extremities Exam: Full ROM, Normal Capillary Refill, Normal Inspection, Pedal Edema. absent: Joint Swelling - Back Exam Back Exam: NORMAL INSPECTION - Neurological Exam Neurological Exam: Abnormal Gait, Alert, Awake, CN II-XII Intact, Oriented x3 - Psychiatric Exam Psychiatric exam: Normal Affect, Normal Mood - Skin Skin Exam: Dry, Intact, Normal Color, Warm Assessment and Plan - Assessment and Plan (Free Text) Assessment: SEPSIS ENDOCARDITIS HTN DM ANEMIA URINARY RETENTION Plan: CONTINUE ANTIBIOTIC RX WILL NEED A PICC LINE FOR HOME/SUBACUTE CARE IV ANTIBIOTIC RX REPEAT LABS
--- NOTE | 2018-03-29 10:07 | CP.PCM.PN ---
Subjective - Date & Time of Evaluation Date of Evaluation: 03/29/18 Time of Evaluation: 10:00 - Subjective Subjective: cultures noted switched to ampi/rocephin Objective - Vital Signs/Intake and Output Vital Signs (last 24 hours): Temp Pulse Resp BP Pulse Ox 97.9 F 85 18 122/61 97 03/29/18 07:50 03/29/18 07:50 03/29/18 07:50 03/29/18 08:34 03/29/18 07:50 - Medications Medications: Current Medications Acetaminophen (Tylenol 325mg Tab) 650 mg PO Q6 PRN PRN Reason: Pain, Mild (1-3) Last Admin: 03/29/18 01:30 Dose: 650 mg Aspirin (Ecotrin) 81 mg PO DAILY [facility] Last Admin: 03/29/18 08:33 Dose: 81 mg Atorvastatin Calcium (Lipitor) 20 mg PO DAILY [facility] Last Admin: 03/29/18 08:34 Dose: 20 mg Famotidine (Pepcid) 20 mg PO BID [facility] Last Admin: 03/29/18 08:35 Dose: 20 mg Furosemide (Lasix) 40 mg IV DAILY [facility] Last Admin: 03/29/18 08:34 Dose: 40 mg Glipizide (Glucotrol Xl) 2.5 mg PO BRK [facility] Last Admin: 03/29/18 08:34 Dose: 2.5 mg Ampicillin 2 gm/ Sodium (Chloride) 100 mls @ 100 mls/hr IVPB Q6 [facility] PRN Reason: Protocol Ceftriaxone Sodium 1,000 mg/ (PED IV SYRINGE) 0 mls @ 100 mls/hr IVPB Q12H [facility] PRN Reason: Protocol Insulin Human Regular (Humulin R) 0 units SC ACHS [facility] PRN Reason: Protocol Last Admin: 03/29/18 06:33 Dose: Not Given Metformin HCl (Glucophage) 1,000 mg PO BID [facility] Last Admin: 03/29/18 08:33 Dose: 1,000 mg Tamsulosin HCl (Flomax) 0.4 mg PO HS [facility] Last Admin: 03/28/18 21:45 Dose: 0.4 mg Valsartan (Diovan) 40 mg PO DAILY [facility] Last Admin: 03/29/18 08:33 Dose: 40 mg - Labs Labs: 03/27/18 05:45 03/27/18 05:45 - Constitutional Appears: Non-toxic, Chronically Ill - Head Exam Head Exam: NORMOCEPHALIC - Eye Exam Eye Exam: PERRL - ENT Exam ENT Exam: Mucous Membranes Dry - Neck Exam Neck Exam: absent: Lymphadenopathy - Respiratory Exam Respiratory Exam: Decreased Breath Sounds - Cardiovascular Exam Cardiovascular Exam: REGULAR RHYTHM - GI/Abdominal Exam GI & Abdominal Exam: Distended - Rectal Exam Rectal Exam: Deferred - Exam Exam: NORMAL INSPECTION Assessment and Plan (1) CHF (congestive heart failure) Status: Acute (2) Endocarditis Status: Acute (3) SIRS (systemic inflammatory response syndrome) Status: Acute (4) Urinary tract infection Status: Acute - Assessment and Plan (Free Text) Assessment: cont rx endocarditis
[2018-03-29] MEDS: AMPicillin 2 GM in Sodium Chloride 0.9% 100 ML IVPB SCH ×3 (10:56→21:33)
[2018-03-29 12:00] LABS: INR 1.2 (0.9-1.2); PROTHROMBIN TIME 12.9 Seconds (9.8-13.1)
[2018-03-29] MEDS ORDERED: Epoetin Alfa 20000 UNIT/ML (RENAL DOSE) SC ONE (12:05)
--- NOTE | 2018-03-29 12:05 | CP.PCM.PN ---
Subjective - Date & Time of Evaluation Date of Evaluation: 03/29/18 Time of Evaluation: 11:45 - Subjective Subjective: Breathing better Objective - Vital Signs/Intake and Output Vital Signs (last 24 hours): Temp Pulse Resp BP Pulse Ox 97.9 F 85 18 122/61 97 03/29/18 07:50 03/29/18 09:00 03/29/18 07:50 03/29/18 08:34 03/29/18 07:50 - Medications Medications: Current Medications Acetaminophen (Tylenol 325mg Tab) 650 mg PO Q6 PRN PRN Reason: Pain, Mild (1-3) Last Admin: 03/29/18 01:30 Dose: 650 mg Aspirin (Ecotrin) 81 mg PO DAILY [facility] Last Admin: 03/29/18 08:33 Dose: 81 mg Atorvastatin Calcium (Lipitor) 20 mg PO DAILY [facility] Last Admin: 03/29/18 08:34 Dose: 20 mg Famotidine (Pepcid) 20 mg PO BID [facility] Last Admin: 03/29/18 08:35 Dose: 20 mg Furosemide (Lasix) 40 mg IV DAILY [facility] Last Admin: 03/29/18 08:34 Dose: 40 mg Glipizide (Glucotrol Xl) 2.5 mg PO BRK [facility] Last Admin: 03/29/18 08:34 Dose: 2.5 mg Ampicillin 2 gm/ Sodium (Chloride) 100 mls @ 100 mls/hr IVPB Q6 [facility] PRN Reason: Protocol Last Admin: 03/29/18 10:56 Dose: 100 mls/hr Ceftriaxone Sodium 1 gm/ (Sodium Chloride) 100 mls @ 100 mls/hr IVPB Q12H [facility] PRN Reason: Protocol Last Admin: 03/29/18 10:57 Dose: 100 mls/hr Insulin Human Regular (Humulin R) 0 units SC ACHS [facility] PRN Reason: Protocol Last Admin: 03/29/18 06:33 Dose: Not Given Metformin HCl (Glucophage) 1,000 mg PO BID [facility] Last Admin: 03/29/18 08:33 Dose: 1,000 mg Metoprolol Succinate (Toprol Xl) 25 mg PO DAILY [facility] Tamsulosin HCl (Flomax) 0.4 mg PO HS [facility] Last Admin: 03/28/18 21:45 Dose: 0.4 mg Valsartan (Diovan) 40 mg PO DAILY [facility] Last Admin: 03/29/18 08:33 Dose: 40 mg - Labs Labs: 03/27/18 05:45 03/27/18 05:45 PT 12.9 Seconds (9.8-13.1) 03/29/18 11:30 INR 1.2 (0.9-1.2) 03/29/18 11:30 - Head Exam Head Exam: ATRAUMATIC - Eye Exam Eye Exam: Normal appearance - ENT Exam ENT Exam: Mucous Membranes Dry - Respiratory Exam Respiratory Exam: NORMAL BREATHING PATTERN - Cardiovascular Exam Cardiovascular Exam: +S1, +S2 - GI/Abdominal Exam GI & Abdominal Exam: Normal Bowel Sounds Assessment and Plan (1) Anemia Assessment & Plan: work up consistent with hypoproliferative erythroid response likely anemia of chronic disease from infection H/H fairly stable will give a dose of Procrit in an attempt to raise H/H and avoid transfusion Status: Acute
[2018-03-29] MEDS: Metoprolol Succinate 25 mg XL Tab PO SCH (12:31)
--- NOTE | 2018-03-29 21:20 | CP.PCM.PN ---
Subjective - Date & Time of Evaluation Date of Evaluation: 03/29/18 Time of Evaluation: 21:20 - Subjective Subjective: no current chest pain. no dyspnea Objective - Vital Signs/Intake and Output Vital Signs (last 24 hours): Temp Pulse Resp BP Pulse Ox 97.4 F L 90 18 134/59 L 100 03/29/18 20:31 03/29/18 20:31 03/29/18 20:31 03/29/18 20:31 03/29/18 20:31 Intake and Output: 03/29/18 03/30/18 18:59 06:59 Intake Total 1300 Balance 1300 - Medications Medications: Current Medications Acetaminophen (Tylenol 325mg Tab) 650 mg PO Q6 PRN PRN Reason: Pain, Mild (1-3) Last Admin: 03/29/18 01:30 Dose: 650 mg Aspirin (Ecotrin) 81 mg PO DAILY [facility] Last Admin: 03/29/18 08:33 Dose: 81 mg Atorvastatin Calcium (Lipitor) 20 mg PO DAILY [facility] Last Admin: 03/29/18 08:34 Dose: 20 mg Famotidine (Pepcid) 20 mg PO BID [facility] Last Admin: 03/29/18 16:09 Dose: 20 mg Furosemide (Lasix) 40 mg IV DAILY [facility] Last Admin: 03/29/18 08:34 Dose: 40 mg Ampicillin 2 gm/ Sodium (Chloride) 100 mls @ 100 mls/hr IVPB Q6 [facility] PRN Reason: Protocol Last Admin: 03/29/18 16:08 Dose: 100 mls/hr Ceftriaxone Sodium 1 gm/ (Sodium Chloride) 100 mls @ 100 mls/hr IVPB Q12H [facility] PRN Reason: Protocol Last Admin: 03/29/18 10:57 Dose: 100 mls/hr Insulin Human Regular (Humulin R) 0 units SC ACHS [facility] PRN Reason: Protocol Last Admin: 03/29/18 16:28 Dose: Not Given Metformin HCl (Glucophage) 500 mg PO BIDWM [facility] Metoprolol Succinate (Toprol Xl) 25 mg PO DAILY [facility] Last Admin: 03/29/18 12:31 Dose: 25 mg Tamsulosin HCl (Flomax) 0.4 mg PO HS [facility] Last Admin: 03/28/18 21:45 Dose: 0.4 mg Valsartan (Diovan) 40 mg PO DAILY [facility] Last Admin: 03/29/18 08:33 Dose: 40 mg - Labs Labs: 03/27/18 05:45 03/27/18 05:45 PT 12.9 Seconds (9.8-13.1) 03/29/18 11:30 INR 1.2 (0.9-1.2) 03/29/18 11:30 - Constitutional Appears: Non-toxic - Head Exam Head Exam: NORMAL INSPECTION - Eye Exam Eye Exam: Normal appearance - ENT Exam ENT Exam: Mucous Membranes Moist - Neck Exam Neck Exam: Normal Inspection - Respiratory Exam Respiratory Exam: NORMAL BREATHING PATTERN - Cardiovascular Exam Cardiovascular Exam: REGULAR RHYTHM - GI/Abdominal Exam GI & Abdominal Exam: Normal Bowel Sounds - Rectal Exam Rectal Exam: Deferred - Extremities Exam Extremities Exam: Normal Inspection - Back Exam Back Exam: NORMAL INSPECTION - Neurological Exam Neurological Exam: Alert - Psychiatric Exam Psychiatric exam: Normal Affect - Skin Skin Exam: Normal Color Assessment and Plan (1) CHF (congestive heart failure) Assessment & Plan: s/p endocarditis. conintue antibiotics. Status: Acute (2) Endocarditis Assessment & Plan: as above. will monitor valvular status Status: Acute
[2018-03-30] MEDS: AMPicillin 2 GM in Sodium Chloride 0.9% 100 ML IVPB SCH ×4 (03:57→21:38)
[2018-03-30 05:52] LABS: BASO % 0.4 % (0.0-2.0); EOS % 0.7 % (0.0-4.0); LYMPH # 0.9 K/uL (1.0-4.3); LYMPH % 15.7 % (20.0-40.0); MEAN CELL VOLUME 80.9 fl (80.0-94.0); MEAN CORPUSCULAR HEMOGLOBIN 26.5 pg (27.0-31.0); MEAN CORPUSCULAR HGB CONC 32.7 g/dL (33.0-37.0); MEAN PLATELET VOLUME 7.6 fl (7.2-11.7); MONO # 0.5 K/uL (0.0-0.8); MONO % 8.5 % (0.0-10.0); NEUT # 4.3 K/uL (1.8-7.0); NEUT % 74.7 % (50.0-75.0); RBC 3.4 Mil/uL (4.40-5.90); RED CELL DISTRIBUTION WIDTH 16.6 % (11.5-14.5); WHITE BLOOD COUNT 5.7 K/uL (4.8-10.8)
[2018-03-30 06:00] LABS: B-TYPE NATRIURETIC PEPTIDE 1780 pg/ml (0-900)
[2018-03-30 06:15] LABS: BLOOD UREA NITROGEN 12 mg/dl (9-20)
[2018-03-30 06:16] LABS: CALCIUM 8.9 mg/dL (8.4-10.2); GFR AFRICAN-AMERICAN > 60; GFR NON-AFRICAN AMERICAN > 60
[2018-03-30] MEDS: Insulin Regular 100 units/ml SC SCH ×4 (06:45→21:35)
--- NOTE | 2018-03-30 08:51 | CP.PCM.PN ---
Subjective - Date & Time of Evaluation Date of Evaluation: 03/30/18 Time of Evaluation: 08:51 - Subjective Subjective: APPETITE STILL POOR BUT FEELING BETTER SOB IMPROVED AFEBRILE Objective - Vital Signs/Intake and Output Vital Signs (last 24 hours): Temp Pulse Resp BP Pulse Ox 97.3 F L 94 H 20 124/49 L 94 L 03/30/18 08:02 03/30/18 08:02 03/30/18 08:02 03/30/18 08:02 03/30/18 08:02 - Medications Medications: Current Medications Acetaminophen (Tylenol 325mg Tab) 650 mg PO Q6 PRN PRN Reason: Pain, Mild (1-3) Last Admin: 03/30/18 04:04 Dose: 650 mg Aspirin (Ecotrin) 81 mg PO DAILY [facility] Last Admin: 03/29/18 08:33 Dose: 81 mg Atorvastatin Calcium (Lipitor) 20 mg PO DAILY [facility] Last Admin: 03/29/18 08:34 Dose: 20 mg Famotidine (Pepcid) 20 mg PO BID [facility] Last Admin: 03/29/18 16:09 Dose: 20 mg Furosemide (Lasix) 40 mg IV DAILY [facility] Last Admin: 03/29/18 08:34 Dose: 40 mg Ampicillin 2 gm/ Sodium (Chloride) 100 mls @ 100 mls/hr IVPB Q6 [facility] PRN Reason: Protocol Last Admin: 03/30/18 03:57 Dose: 100 mls/hr Ceftriaxone Sodium 1 gm/ (Sodium Chloride) 100 mls @ 100 mls/hr IVPB Q12H [facility] PRN Reason: Protocol Last Admin: 03/29/18 21:34 Dose: 100 mls/hr Insulin Human Regular (Humulin R) 0 units SC ACHS [facility] PRN Reason: Protocol Last Admin: 03/30/18 06:45 Dose: Not Given Metformin HCl (Glucophage) 500 mg PO BIDWM [facility] Metoprolol Succinate (Toprol Xl) 25 mg PO DAILY [facility] Last Admin: 03/29/18 12:31 Dose: 25 mg Tamsulosin HCl (Flomax) 0.4 mg PO HS [facility] Last Admin: 03/29/18 21:35 Dose: 0.4 mg Valsartan (Diovan) 40 mg PO DAILY [facility] Last Admin: 03/29/18 08:33 Dose: 40 mg - Labs Labs: 03/30/18 04:25 03/30/18 04:25 PT 12.9 Seconds (9.8-13.1) 03/29/18 11:30 INR 1.2 (0.9-1.2) 03/29/18 11:30 - Constitutional Appears: No Acute Distress - Head Exam Head Exam: ATRAUMATIC, NORMAL INSPECTION, NORMOCEPHALIC - Eye Exam Eye Exam: EOMI, Normal appearance, PERRL Pupil Exam: NORMAL ACCOMODATION, PERRL - ENT Exam ENT Exam: Mucous Membranes Moist, Normal Exam - Neck Exam Neck Exam: Full ROM, Normal Inspection. absent: Lymphadenopathy - Respiratory Exam Respiratory Exam: Prolonged Expiratory Phase, Rales, NORMAL BREATHING PATTERN - Cardiovascular Exam Cardiovascular Exam: REGULAR RHYTHM, +S1, +S2. absent: Murmur - GI/Abdominal Exam GI & Abdominal Exam: Soft, Normal Bowel Sounds. absent: Tenderness - Rectal Exam Rectal Exam: NORMAL INSPECTION - Extremities Exam Extremities Exam: Full ROM, Normal Capillary Refill, Normal Inspection. absent : Joint Swelling, Pedal Edema - Back Exam Back Exam: NORMAL INSPECTION - Neurological Exam Neurological Exam: Alert, Awake, CN II-XII Intact, Normal Gait, Oriented x3 - Psychiatric Exam Psychiatric exam: Normal Affect, Normal Mood - Skin Skin Exam: Dry, Intact, Normal Color, Warm Assessment and Plan - Assessment and Plan (Free Text) Assessment: CHF--IMPROVED ENDOCARDITIS ANEMIA DM HTN Plan: CONTINUE CURRENT RX WILL DISCUS DISPOSITION AND APPROPRIATE HOME IV ANTIBIOTIC RX WITH ID
[2018-03-30] MEDS: Metoprolol Succinate 25 mg XL Tab PO SCH (09:18)
--- NOTE | 2018-03-30 11:22 | RAD ---
HISTORY: CHF COMPARISON: 03/25/2018 03/28/2018 CT thorax TECHNIQUE: Chest PA and lateral FINDINGS: LUNGS: Persistent atelectatic changes at the lung bases left greater than right. Left hemidiaphragm remains elevated. PLEURA: Stable pleural effusions. CARDIOVASCULAR: Cardiomegaly. No evidence of acute, significant cardiovascular disease. OSSEOUS STRUCTURES: No significant abnormalities. VISUALIZED UPPER ABDOMEN: Normal. OTHER FINDINGS: None. IMPRESSION: No significant interval change compared to the prior examination(s).
--- NOTE | 2018-03-30 12:12 | CP.PCM.PN ---
Subjective - Date & Time of Evaluation Date of Evaluation: 03/30/18 Time of Evaluation: 09:00 - Subjective Subjective: blood c/s still positive will repeat Objective - Vital Signs/Intake and Output Vital Signs (last 24 hours): Temp Pulse Resp BP Pulse Ox 97.3 F L 94 H 20 124/50 L 94 L 03/30/18 08:02 03/30/18 09:18 03/30/18 08:02 03/30/18 09:18 03/30/18 08:02 - Medications Medications: Current Medications Acetaminophen (Tylenol 325mg Tab) 650 mg PO Q6 PRN PRN Reason: Pain, Mild (1-3) Last Admin: 03/30/18 04:04 Dose: 650 mg Aspirin (Ecotrin) 81 mg PO DAILY [facility] Last Admin: 03/30/18 09:13 Dose: 81 mg Atorvastatin Calcium (Lipitor) 20 mg PO DAILY [facility] Last Admin: 03/30/18 09:16 Dose: 20 mg Famotidine (Pepcid) 20 mg PO BID [facility] Last Admin: 03/30/18 09:16 Dose: 20 mg Furosemide (Lasix) 40 mg IV DAILY [facility] Last Admin: 03/30/18 09:14 Dose: 40 mg Ampicillin 2 gm/ Sodium (Chloride) 100 mls @ 100 mls/hr IVPB Q6 [facility] PRN Reason: Protocol Last Admin: 03/30/18 10:11 Dose: 100 mls/hr Ceftriaxone Sodium 1 gm/ (Sodium Chloride) 100 mls @ 100 mls/hr IVPB Q12H [facility] PRN Reason: Protocol Last Admin: 03/30/18 09:17 Dose: 100 mls/hr Insulin Human Regular (Humulin R) 0 units SC ACHS [facility] PRN Reason: Protocol Last Admin: 03/30/18 06:45 Dose: Not Given Metformin HCl (Glucophage) 500 mg PO BIDWM [facility] Last Admin: 03/30/18 09:13 Dose: 500 mg Metoprolol Succinate (Toprol Xl) 25 mg PO DAILY [facility] Last Admin: 03/30/18 09:18 Dose: 25 mg Tamsulosin HCl (Flomax) 0.4 mg PO HS [facility] Last Admin: 03/29/18 21:35 Dose: 0.4 mg Valsartan (Diovan) 40 mg PO DAILY [facility] Last Admin: 03/30/18 09:13 Dose: 40 mg - Labs Labs: 03/30/18 04:25 03/30/18 04:25 PT 12.9 Seconds (9.8-13.1) 03/29/18 11:30 INR 1.2 (0.9-1.2) 03/29/18 11:30 - Constitutional Appears: Non-toxic, Chronically Ill - Head Exam Head Exam: NORMOCEPHALIC - Eye Exam Eye Exam: absent: Scleral icterus - ENT Exam ENT Exam: Mucous Membranes Dry - Neck Exam Neck Exam: absent: Lymphadenopathy - Respiratory Exam Respiratory Exam: Decreased Breath Sounds - Cardiovascular Exam Cardiovascular Exam: REGULAR RHYTHM, Murmur - GI/Abdominal Exam GI & Abdominal Exam: Distended, Soft - Rectal Exam Rectal Exam: Deferred - Extremities Exam Extremities Exam: absent: Pedal Edema - Back Exam Back Exam: absent: CVA tenderness (L), CVA tenderness (R) Assessment and Plan (1) CHF (congestive heart failure) Status: Acute (2) Endocarditis Status: Acute (3) SIRS (systemic inflammatory response syndrome) Status: Acute (4) Urinary tract infection Status: Acute - Assessment and Plan (Free Text) Assessment: cont iv rx min 6 weeks
--- NOTE | 2018-03-30 12:23 | CP.PCM.PN ---
Subjective - Date & Time of Evaluation Date of Evaluation: 03/30/18 Time of Evaluation: 11:10 - Subjective Subjective: No complaints. Objective - Vital Signs/Intake and Output Vital Signs (last 24 hours): Temp Pulse Resp BP Pulse Ox 97.3 F L 94 H 20 124/50 L 94 L 03/30/18 08:02 03/30/18 09:18 03/30/18 08:02 03/30/18 09:18 03/30/18 08:02 - Medications Medications: Current Medications Acetaminophen (Tylenol 325mg Tab) 650 mg PO Q6 PRN PRN Reason: Pain, Mild (1-3) Last Admin: 03/30/18 04:04 Dose: 650 mg Aspirin (Ecotrin) 81 mg PO DAILY [facility] Last Admin: 03/30/18 09:13 Dose: 81 mg Atorvastatin Calcium (Lipitor) 20 mg PO DAILY [facility] Last Admin: 03/30/18 09:16 Dose: 20 mg Famotidine (Pepcid) 20 mg PO BID [facility] Last Admin: 03/30/18 09:16 Dose: 20 mg Furosemide (Lasix) 40 mg IV DAILY [facility] Last Admin: 03/30/18 09:14 Dose: 40 mg Ampicillin 2 gm/ Sodium (Chloride) 100 mls @ 100 mls/hr IVPB Q6 [facility] PRN Reason: Protocol Last Admin: 03/30/18 10:11 Dose: 100 mls/hr Ceftriaxone Sodium 1 gm/ (Sodium Chloride) 100 mls @ 100 mls/hr IVPB Q12H [facility] PRN Reason: Protocol Last Admin: 03/30/18 09:17 Dose: 100 mls/hr Insulin Human Regular (Humulin R) 0 units SC ACHS [facility] PRN Reason: Protocol Last Admin: 03/30/18 06:45 Dose: Not Given Metformin HCl (Glucophage) 500 mg PO BIDWM [facility] Last Admin: 03/30/18 09:13 Dose: 500 mg Metoprolol Succinate (Toprol Xl) 25 mg PO DAILY [facility] Last Admin: 03/30/18 09:18 Dose: 25 mg Tamsulosin HCl (Flomax) 0.4 mg PO HS [facility] Last Admin: 03/29/18 21:35 Dose: 0.4 mg Valsartan (Diovan) 40 mg PO DAILY [facility] Last Admin: 03/30/18 09:13 Dose: 40 mg - Labs Labs: 03/30/18 04:25 03/30/18 04:25 PT 12.9 Seconds (9.8-13.1) 03/29/18 11:30 INR 1.2 (0.9-1.2) 03/29/18 11:30 - Head Exam Head Exam: ATRAUMATIC - Eye Exam Eye Exam: Normal appearance - ENT Exam ENT Exam: Mucous Membranes Dry - Respiratory Exam Respiratory Exam: NORMAL BREATHING PATTERN - Cardiovascular Exam Cardiovascular Exam: +S1, +S2 - GI/Abdominal Exam GI & Abdominal Exam: Normal Bowel Sounds Assessment and Plan (1) Anemia Assessment & Plan: anemia of chronic disease from infection s/p Procrit to avoid transfusion support H/H improved Status: Acute
[2018-03-31] MEDS: AMPicillin 2 GM in Sodium Chloride 0.9% 100 ML IVPB SCH ×4 (03:13→21:28)
[2018-03-31] MEDS: Insulin Regular 100 units/ml SC SCH ×4 (06:35→21:48)
[2018-03-31] MEDS: Metoprolol Succinate 25 mg XL Tab PO SCH (08:42)
[2018-03-31] MEDS: Enoxaparin 40 mg Syringe SC SCH (08:42)
--- NOTE | 2018-03-31 09:15 | CP.PCM.PN ---
Subjective - Date & Time of Evaluation Date of Evaluation: 03/31/18 Time of Evaluation: 09:15 - Subjective Subjective: CLINICALLY IMPROVING AFEBRILE APPETITE IMPROVING Objective - Vital Signs/Intake and Output Vital Signs (last 24 hours): Temp Pulse Resp BP Pulse Ox 97.3 F L 89 20 123/60 99 03/31/18 08:01 03/31/18 08:42 03/31/18 08:01 03/31/18 08:43 03/31/18 08:01 - Medications Medications: Current Medications Acetaminophen (Tylenol 325mg Tab) 650 mg PO Q6 PRN PRN Reason: Pain, Mild (1-3) Last Admin: 03/30/18 21:37 Dose: 650 mg Aspirin (Ecotrin) 81 mg PO DAILY [facility] Last Admin: 03/31/18 08:43 Dose: 81 mg Atorvastatin Calcium (Lipitor) 20 mg PO DAILY [facility] Last Admin: 03/31/18 08:43 Dose: 20 mg Enoxaparin Sodium (Lovenox) 40 mg SC DAILY [facility] PRN Reason: Protocol Last Admin: 03/31/18 08:42 Dose: 40 mg Famotidine (Pepcid) 20 mg PO BID [facility] Last Admin: 03/31/18 08:42 Dose: 20 mg Furosemide (Lasix) 40 mg IV DAILY [facility] Last Admin: 03/31/18 08:43 Dose: 40 mg Ampicillin 2 gm/ Sodium (Chloride) 100 mls @ 100 mls/hr IVPB Q6 [facility] PRN Reason: Protocol Last Admin: 03/31/18 03:13 Dose: 100 mls/hr Ceftriaxone Sodium 1 gm/ (Sodium Chloride) 100 mls @ 100 mls/hr IVPB Q12H [facility] PRN Reason: Protocol Last Admin: 03/30/18 21:29 Dose: 100 mls/hr Insulin Human Regular (Humulin R) 0 units SC ACHS [facility] PRN Reason: Protocol Last Admin: 03/31/18 06:35 Dose: Not Given Metformin HCl (Glucophage) 500 mg PO BIDWM [facility] Last Admin: 03/31/18 08:43 Dose: 500 mg Metoprolol Succinate (Toprol Xl) 25 mg PO DAILY [facility] Last Admin: 03/31/18 08:42 Dose: 25 mg Tamsulosin HCl (Flomax) 0.4 mg PO HS [facility] Last Admin: 03/30/18 21:29 Dose: 0.4 mg Valsartan (Diovan) 40 mg PO DAILY [facility] Last Admin: 03/31/18 08:43 Dose: 40 mg - Labs Labs: 03/30/18 04:25 03/30/18 04:25 PT 12.9 Seconds (9.8-13.1) 03/29/18 11:30 INR 1.2 (0.9-1.2) 03/29/18 11:30 - Constitutional Appears: No Acute Distress - Head Exam Head Exam: ATRAUMATIC, NORMAL INSPECTION, NORMOCEPHALIC - Eye Exam Eye Exam: EOMI, Normal appearance, PERRL Pupil Exam: NORMAL ACCOMODATION, PERRL - ENT Exam ENT Exam: Mucous Membranes Moist, Normal Exam - Neck Exam Neck Exam: Full ROM, Normal Inspection. absent: Lymphadenopathy - Respiratory Exam Respiratory Exam: Clear to Ausculation Bilateral, NORMAL BREATHING PATTERN - Cardiovascular Exam Cardiovascular Exam: REGULAR RHYTHM, +S1, +S2. absent: Murmur - GI/Abdominal Exam GI & Abdominal Exam: Soft, Normal Bowel Sounds. absent: Tenderness - Rectal Exam Rectal Exam: NORMAL INSPECTION - Extremities Exam Extremities Exam: Full ROM, Normal Capillary Refill, Normal Inspection. absent : Joint Swelling, Pedal Edema - Back Exam Back Exam: NORMAL INSPECTION - Neurological Exam Neurological Exam: Alert, Awake, CN II-XII Intact, Normal Gait, Oriented x3 - Psychiatric Exam Psychiatric exam: Normal Affect, Normal Mood - Skin Skin Exam: Dry, Intact, Normal Color, Warm Assessment and Plan - Assessment and Plan (Free Text) Assessment: ENDOCARDITIS CHF HTN DM Plan: CONTINUE SAME RX WILL NEED SUBACUTE CARE FOR IV ANTIBIOTICS
--- NOTE | 2018-03-31 18:44 | CP.PCM.PN ---
Subjective - Date & Time of Evaluation Date of Evaluation: 03/31/18 Time of Evaluation: 11:00 - Subjective Subjective: patient feels well. denies chest pain or dsypnea Objective - Vital Signs/Intake and Output Vital Signs (last 24 hours): Temp Pulse Resp BP Pulse Ox 98.1 F 92 H 20 120/60 100 03/31/18 16:22 03/31/18 16:22 03/31/18 16:22 03/31/18 16:22 03/31/18 16:22 Intake and Output: 03/31/18 03/31/18 06:59 18:59 Intake Total 1000 Balance 1000 - Medications Medications: Current Medications Acetaminophen (Tylenol 325mg Tab) 650 mg PO Q6 PRN PRN Reason: Pain, Mild (1-3) Last Admin: 03/30/18 21:37 Dose: 650 mg Aspirin (Ecotrin) 81 mg PO DAILY [facility] Last Admin: 03/31/18 08:43 Dose: 81 mg Atorvastatin Calcium (Lipitor) 20 mg PO DAILY [facility] Last Admin: 03/31/18 08:43 Dose: 20 mg Enoxaparin Sodium (Lovenox) 40 mg SC DAILY [facility] PRN Reason: Protocol Last Admin: 03/31/18 08:42 Dose: 40 mg Famotidine (Pepcid) 20 mg PO BID [facility] Last Admin: 03/31/18 16:59 Dose: 20 mg Furosemide (Lasix) 40 mg IV DAILY [facility] Last Admin: 03/31/18 08:43 Dose: 40 mg Ampicillin 2 gm/ Sodium (Chloride) 100 mls @ 100 mls/hr IVPB Q6 [facility] PRN Reason: Protocol Last Admin: 03/31/18 16:59 Dose: 100 mls/hr Ceftriaxone Sodium 1 gm/ (Sodium Chloride) 100 mls @ 100 mls/hr IVPB Q12H [facility] PRN Reason: Protocol Last Admin: 03/31/18 09:30 Dose: 100 mls/hr Insulin Human Regular (Humulin R) 0 units SC ACHS [facility] PRN Reason: Protocol Last Admin: 03/31/18 16:58 Dose: Not Given Metformin HCl (Glucophage) 500 mg PO BIDWM [facility] Last Admin: 03/31/18 17:00 Dose: 500 mg Metoprolol Succinate (Toprol Xl) 25 mg PO DAILY [facility] Last Admin: 03/31/18 08:42 Dose: 25 mg Tamsulosin HCl (Flomax) 0.4 mg PO [facility] Last Admin: 03/30/18 21:29 Dose: 0.4 mg Valsartan (Diovan) 40 mg PO DAILY [facility] Last Admin: 03/31/18 08:43 Dose: 40 mg - Labs Labs: 03/30/18 04:25 03/30/18 04:25 PT 12.9 Seconds (9.8-13.1) 03/29/18 11:30 INR 1.2 (0.9-1.2) 03/29/18 11:30 - Constitutional Appears: Non-toxic - Head Exam Head Exam: NORMAL INSPECTION - Eye Exam Eye Exam: Normal appearance - ENT Exam ENT Exam: Mucous Membranes Moist - Neck Exam Neck Exam: Full ROM - Respiratory Exam Respiratory Exam: NORMAL BREATHING PATTERN - Cardiovascular Exam Cardiovascular Exam: REGULAR RHYTHM - GI/Abdominal Exam GI & Abdominal Exam: Normal Bowel Sounds - Rectal Exam Rectal Exam: Deferred - Extremities Exam Extremities Exam: Pedal Edema - Back Exam Back Exam: NORMAL INSPECTION - Neurological Exam Neurological Exam: Alert - Psychiatric Exam Psychiatric exam: Normal Affect - Skin Skin Exam: Normal Color Assessment and Plan (1) CHF (congestive heart failure) Status: Acute (2) Endocarditis Assessment & Plan: continue antibiotics for a minimum of 6 weeks. Status: Acute
[2018-04-01] MEDS: AMPicillin 2 GM in Sodium Chloride 0.9% 100 ML IVPB SCH ×4 (04:22→22:05)
[2018-04-01] MEDS: Insulin Regular 100 units/ml SC SCH ×4 (06:31→22:00)
[2018-04-01] MEDS: Enoxaparin 40 mg Syringe SC SCH (09:21)
[2018-04-01] MEDS: Metoprolol Succinate 25 mg XL Tab PO SCH (09:23)
--- NOTE | 2018-04-01 12:48 | CP.PCM.PN ---
Subjective - Date & Time of Evaluation Date of Evaluation: 04/01/18 Time of Evaluation: 08:00 - Subjective Subjective: improving slowly IV rx reordered repeat c/s x 1 day neg Objective - Vital Signs/Intake and Output Vital Signs (last 24 hours): Temp Pulse Resp BP Pulse Ox 98.2 F 96 H 20 126/65 99 04/01/18 12:40 04/01/18 12:40 04/01/18 12:40 04/01/18 12:40 04/01/18 12:40 - Medications Medications: Current Medications Acetaminophen (Tylenol 325mg Tab) 650 mg PO Q6 PRN PRN Reason: Pain, Mild (1-3) Last Admin: 03/31/18 20:31 Dose: 650 mg Aspirin (Ecotrin) 81 mg PO DAILY [facility] Last Admin: 04/01/18 09:25 Dose: 81 mg Atorvastatin Calcium (Lipitor) 20 mg PO DAILY [facility] Last Admin: 04/01/18 09:26 Dose: 20 mg Enoxaparin Sodium (Lovenox) 40 mg SC DAILY [facility] PRN Reason: Protocol Last Admin: 04/01/18 09:21 Dose: 40 mg Famotidine (Pepcid) 20 mg PO BID [facility] Last Admin: 04/01/18 09:24 Dose: 20 mg Furosemide (Lasix) 40 mg IV DAILY [facility] Last Admin: 04/01/18 09:26 Dose: 40 mg Ampicillin 2 gm/ Sodium (Chloride) 100 mls @ 100 mls/hr IVPB Q6 [facility] PRN Reason: Protocol Last Admin: 04/01/18 10:25 Dose: 100 mls/hr Ceftriaxone Sodium 1 gm/ (Sodium Chloride) 100 mls @ 100 mls/hr IVPB Q12H [facility] PRN Reason: Protocol Last Admin: 04/01/18 10:22 Dose: 100 mls/hr Insulin Human Regular (Humulin R) 0 units SC ACHS [facility] PRN Reason: Protocol Last Admin: 04/01/18 11:40 Dose: 1 units Metformin HCl (Glucophage) 500 mg PO BIDWM [facility] Last Admin: 04/01/18 08:24 Dose: 500 mg Metoprolol Succinate (Toprol Xl) 25 mg PO DAILY [facility] Last Admin: 04/01/18 09:23 Dose: 25 mg Tamsulosin HCl (Flomax) 0.4 mg PO HS [facility] Last Admin: 03/31/18 21:29 Dose: 0.4 mg Valsartan (Diovan) 40 mg PO DAILY [facility] Last Admin: 04/01/18 09:23 Dose: 40 mg - Labs Labs: 03/30/18 04:25 03/30/18 04:25 PT 12.9 Seconds (9.8-13.1) 03/29/18 11:30 INR 1.2 (0.9-1.2) 03/29/18 11:30 - Constitutional Appears: Non-toxic, Chronically Ill - Head Exam Head Exam: NORMOCEPHALIC - Eye Exam Eye Exam: PERRL - ENT Exam ENT Exam: Mucous Membranes Dry - Neck Exam Neck Exam: absent: Lymphadenopathy - Respiratory Exam Respiratory Exam: Decreased Breath Sounds - Cardiovascular Exam Cardiovascular Exam: REGULAR RHYTHM, +S1, +S2, Murmur - GI/Abdominal Exam GI & Abdominal Exam: Distended, Soft - Rectal Exam Rectal Exam: Deferred - Exam Exam: NORMAL INSPECTION - Extremities Exam Extremities Exam: absent: Pedal Edema - Back Exam Back Exam: absent: CVA tenderness (L), CVA tenderness (R) - Neurological Exam Neurological Exam: Alert, Awake, Oriented x3 - Psychiatric Exam Psychiatric exam: Normal Mood - Skin Skin Exam: Dry Assessment and Plan (1) CHF (congestive heart failure) Status: Acute (2) Endocarditis Status: Acute (3) SIRS (systemic inflammatory response syndrome) Status: Acute (4) Urinary tract infection Status: Acute
--- NOTE | 2018-04-01 13:16 | CP.PCM.PN ---
Subjective - Date & Time of Evaluation Date of Evaluation: 04/01/18 Time of Evaluation: 13:16 - Subjective Subjective: CLINICALLY IMPROVING SOB AND COUGH LESS PEDAL EDEMA PERSISTS Objective - Vital Signs/Intake and Output Vital Signs (last 24 hours): Temp Pulse Resp BP Pulse Ox 98.2 F 96 H 20 126/65 99 04/01/18 12:40 04/01/18 12:40 04/01/18 12:40 04/01/18 12:40 04/01/18 12:40 - Medications Medications: Current Medications Acetaminophen (Tylenol 325mg Tab) 650 mg PO Q6 PRN PRN Reason: Pain, Mild (1-3) Last Admin: 03/31/18 20:31 Dose: 650 mg Aspirin (Ecotrin) 81 mg PO DAILY [facility] Last Admin: 04/01/18 09:25 Dose: 81 mg Atorvastatin Calcium (Lipitor) 20 mg PO DAILY [facility] Last Admin: 04/01/18 09:26 Dose: 20 mg Enoxaparin Sodium (Lovenox) 40 mg SC DAILY [facility] PRN Reason: Protocol Last Admin: 04/01/18 09:21 Dose: 40 mg Famotidine (Pepcid) 20 mg PO BID [facility] Last Admin: 04/01/18 09:24 Dose: 20 mg Furosemide (Lasix) 40 mg IV DAILY [facility] Last Admin: 04/01/18 09:26 Dose: 40 mg Ampicillin 2 gm/ Sodium (Chloride) 100 mls @ 100 mls/hr IVPB Q6 [facility] PRN Reason: Protocol Last Admin: 04/01/18 10:25 Dose: 100 mls/hr Ceftriaxone Sodium 1 gm/ (Sodium Chloride) 100 mls @ 100 mls/hr IVPB Q12H [facility] PRN Reason: Protocol Last Admin: 04/01/18 10:22 Dose: 100 mls/hr Insulin Human Regular (Humulin R) 0 units SC ACHS [facility] PRN Reason: Protocol Last Admin: 04/01/18 11:40 Dose: 1 units Metformin HCl (Glucophage) 500 mg PO BIDWM [facility] Last Admin: 04/01/18 08:24 Dose: 500 mg Metoprolol Succinate (Toprol Xl) 25 mg PO DAILY [facility] Last Admin: 04/01/18 09:23 Dose: 25 mg Tamsulosin HCl (Flomax) 0.4 mg PO HS [facility] Last Admin: 03/31/18 21:29 Dose: 0.4 mg Valsartan (Diovan) 40 mg PO DAILY [facility] Last Admin: 04/01/18 09:23 Dose: 40 mg - Labs Labs: 03/30/18 04:25 03/30/18 04:25 PT 12.9 Seconds (9.8-13.1) 03/29/18 11:30 INR 1.2 (0.9-1.2) 03/29/18 11:30 - Constitutional Appears: No Acute Distress - Head Exam Head Exam: ATRAUMATIC, NORMAL INSPECTION, NORMOCEPHALIC - Eye Exam Eye Exam: EOMI, Normal appearance, PERRL Pupil Exam: NORMAL ACCOMODATION, PERRL - ENT Exam ENT Exam: Mucous Membranes Moist, Normal Exam - Neck Exam Neck Exam: Full ROM, Normal Inspection. absent: Lymphadenopathy - Respiratory Exam Respiratory Exam: Clear to Ausculation Bilateral, NORMAL BREATHING PATTERN - Cardiovascular Exam Cardiovascular Exam: REGULAR RHYTHM, +S1, +S2. absent: Murmur - GI/Abdominal Exam GI & Abdominal Exam: Soft, Normal Bowel Sounds. absent: Tenderness - Rectal Exam Rectal Exam: NORMAL INSPECTION - Extremities Exam Extremities Exam: Full ROM, Normal Capillary Refill, Normal Inspection, Pedal Edema. absent: Joint Swelling - Back Exam Back Exam: NORMAL INSPECTION - Neurological Exam Neurological Exam: Alert, Awake, CN II-XII Intact, Normal Gait, Oriented x3 - Psychiatric Exam Psychiatric exam: Normal Affect, Normal Mood - Skin Skin Exam: Dry, Intact, Normal Color, Warm Assessment and Plan - Assessment and Plan (Free Text) Assessment: ACUTE ENDOCARDITIS CHF PEDAL EDEMA R/O DVT DM HTN ANEMIA Plan: VENOUS DOPPLER OF LEGS CONTINUE PRESENT RX WILL NEED 6 WEEKS OF IV ANTIBIOTICS
[2018-04-02] MEDS: AMPicillin 2 GM in Sodium Chloride 0.9% 100 ML IVPB SCH ×4 (03:34→21:23)
[2018-04-02] MEDS: Enoxaparin 40 mg Syringe SC SCH (08:29)
[2018-04-02] MEDS: Insulin Regular 100 units/ml SC SCH ×4 (08:29→22:25)
[2018-04-02] MEDS: Metoprolol Succinate 25 mg XL Tab PO SCH (08:30)
--- NOTE | 2018-04-02 10:12 | CP.PCM.PN ---
Subjective - Date & Time of Evaluation Date of Evaluation: 04/02/18 Time of Evaluation: 10:12 - Subjective Subjective: AFEBRILE IMPROVING REPEAT BLOOD CULTURES SO FAR NO GROWTH Objective - Vital Signs/Intake and Output Vital Signs (last 24 hours): Temp Pulse Resp BP Pulse Ox 98.1 F 96 H 18 143/61 100 04/02/18 08:07 04/02/18 08:30 04/02/18 08:07 04/02/18 08:30 04/02/18 08:07 - Medications Medications: Current Medications Acetaminophen (Tylenol 325mg Tab) 650 mg PO Q6 PRN PRN Reason: Pain, Mild (1-3) Last Admin: 04/01/18 17:19 Dose: 650 mg Aspirin (Ecotrin) 81 mg PO DAILY [facility] Last Admin: 04/02/18 08:29 Dose: 81 mg Atorvastatin Calcium (Lipitor) 20 mg PO DAILY [facility] Last Admin: 04/02/18 08:29 Dose: 20 mg Enoxaparin Sodium (Lovenox) 40 mg SC DAILY [facility] PRN Reason: Protocol Last Admin: 04/02/18 08:29 Dose: 40 mg Famotidine (Pepcid) 20 mg PO BID [facility] Last Admin: 04/02/18 08:30 Dose: 20 mg Furosemide (Lasix) 40 mg IV DAILY [facility] Last Admin: 04/02/18 08:28 Dose: 40 mg Ampicillin 2 gm/ Sodium (Chloride) 100 mls @ 100 mls/hr IVPB Q6 [facility] PRN Reason: Protocol Last Admin: 04/02/18 09:16 Dose: 100 mls/hr Ceftriaxone Sodium 1 gm/ (Sodium Chloride) 100 mls @ 100 mls/hr IVPB Q12H [facility] PRN Reason: Protocol Last Admin: 04/02/18 09:16 Dose: 100 mls/hr Insulin Human Regular (Humulin R) 0 units SC ACHS [facility] PRN Reason: Protocol Last Admin: 04/02/18 08:29 Dose: Not Given Metformin HCl (Glucophage) 500 mg PO BIDWM [facility] Last Admin: 04/02/18 08:29 Dose: 500 mg Metoprolol Succinate (Toprol Xl) 25 mg PO DAILY [facility] Last Admin: 04/02/18 08:30 Dose: 25 mg Tamsulosin HCl (Flomax) 0.4 mg PO HS [facility] Last Admin: 04/01/18 22:08 Dose: 0.4 mg Valsartan (Diovan) 40 mg PO DAILY [facility] Last Admin: 04/02/18 08:28 Dose: 40 mg - Labs Labs: 03/30/18 04:25 03/30/18 04:25 PT 12.9 Seconds (9.8-13.1) 03/29/18 11:30 INR 1.2 (0.9-1.2) 03/29/18 11:30 - Constitutional Appears: No Acute Distress - Head Exam Head Exam: ATRAUMATIC, NORMAL INSPECTION, NORMOCEPHALIC - Eye Exam Eye Exam: EOMI, Normal appearance, PERRL Pupil Exam: NORMAL ACCOMODATION, PERRL - ENT Exam ENT Exam: Mucous Membranes Moist, Normal Exam - Neck Exam Neck Exam: Full ROM, Normal Inspection. absent: Lymphadenopathy - Respiratory Exam Respiratory Exam: Clear to Ausculation Bilateral, NORMAL BREATHING PATTERN - Cardiovascular Exam Cardiovascular Exam: REGULAR RHYTHM, +S1, +S2. absent: Murmur - GI/Abdominal Exam GI & Abdominal Exam: Soft, Normal Bowel Sounds. absent: Tenderness - Rectal Exam Rectal Exam: NORMAL INSPECTION - Extremities Exam Extremities Exam: Full ROM, Normal Capillary Refill, Normal Inspection, Pedal Edema. absent: Joint Swelling - Back Exam Back Exam: NORMAL INSPECTION - Neurological Exam Neurological Exam: Alert, Awake, CN II-XII Intact, Normal Gait, Oriented x3 - Psychiatric Exam Psychiatric exam: Normal Affect, Normal Mood - Skin Skin Exam: Dry, Intact, Normal Color, Warm Assessment and Plan - Assessment and Plan (Free Text) Assessment: ACUTE BACTERIA ENDOCARDITIS DM Plan: CONTINUE IV ANTIBIOTICS PICC LINE ON WEDNESDAY AND D/C TO SUBACUTE CARE
--- NOTE | 2018-04-02 13:17 | US ---
PROCEDURE: Bilateral lower extremity venous duplex Doppler. HISTORY: DVT COMPARISON: None available. TECHNIQUE: Bilateral common femoral, superficial femoral, popliteal and posterior tibial veins were evaluated. Flow was assessed with color Doppler, compressibility, assessment of phasic flow and augmentation response. FINDINGS: COMMON FEMORAL VEIN: Right CFV: Unremarkable. Left CFV: Unremarkable. SUPERFICIAL FEMORAL VEIN: Right SFV: Unremarkable. Left SFV: Unremarkable. POPLITEAL VEIN: Right Popliteal: Unremarkable. Left Popliteal: Unremarkable. POSTERIOR TIBIAL VEIN: Right PTV: Unremarkable. Left PTV: Unremarkable. OTHER FINDINGS: None. IMPRESSION: No evidence of deep venous thrombosis.
[2018-04-03] MEDS: AMPicillin 2 GM in Sodium Chloride 0.9% 100 ML IVPB SCH ×4 (04:17→21:43)
[2018-04-03] MEDS: Enoxaparin 40 mg Syringe SC SCH (08:45)
[2018-04-03] MEDS: Insulin Regular 100 units/ml SC SCH ×4 (08:46→21:49)
[2018-04-03] MEDS: Metoprolol Succinate 25 mg XL Tab PO SCH (08:47)
--- NOTE | 2018-04-03 10:58 | CP.PCM.PN ---
Subjective - Date & Time of Evaluation Date of Evaluation: 04/03/18 Time of Evaluation: 10:58 - Subjective Subjective: NO NEW CLINICAL FINDINGS OOB AFEBRILE Objective - Vital Signs/Intake and Output Vital Signs (last 24 hours): Temp Pulse Resp BP Pulse Ox 97.8 F 91 H 18 146/64 100 04/03/18 08:31 04/03/18 09:00 04/03/18 08:31 04/03/18 08:47 04/03/18 08:31 - Medications Medications: Current Medications Acetaminophen (Tylenol 325mg Tab) 650 mg PO Q6 PRN PRN Reason: Pain, Mild (1-3) Last Admin: 04/02/18 18:41 Dose: 650 mg Aspirin (Ecotrin) 81 mg PO DAILY [facility] Last Admin: 04/03/18 08:47 Dose: 81 mg Atorvastatin Calcium (Lipitor) 20 mg PO DAILY [facility] Last Admin: 04/03/18 08:47 Dose: 20 mg Famotidine (Pepcid) 20 mg PO BID [facility] Last Admin: 04/03/18 08:47 Dose: 20 mg Furosemide (Lasix) 40 mg IV DAILY [facility] Last Admin: 04/03/18 08:46 Dose: 40 mg Ampicillin 2 gm/ Sodium (Chloride) 100 mls @ 100 mls/hr IVPB Q6 [facility] PRN Reason: Protocol Last Admin: 04/03/18 09:17 Dose: 100 mls/hr Ceftriaxone Sodium 1 gm/ (Sodium Chloride) 100 mls @ 100 mls/hr IVPB Q12H [facility] PRN Reason: Protocol Last Admin: 04/03/18 09:17 Dose: 100 mls/hr Insulin Human Regular (Humulin R) 0 units SC ACHS [facility] PRN Reason: Protocol Last Admin: 04/03/18 08:46 Dose: Not Given Metformin HCl (Glucophage) 500 mg PO BIDWM [facility] Last Admin: 04/03/18 08:45 Dose: 500 mg Metoprolol Succinate (Toprol Xl) 25 mg PO DAILY [facility] Last Admin: 04/03/18 08:47 Dose: 25 mg Tamsulosin HCl (Flomax) 0.4 mg PO HS [facility] Last Admin: 04/02/18 21:25 Dose: 0.4 mg Valsartan (Diovan) 40 mg PO DAILY [facility] Last Admin: 04/03/18 08:47 Dose: 40 mg - Labs Labs: 03/30/18 04:25 03/30/18 04:25 PT 12.9 Seconds (9.8-13.1) 03/29/18 11:30 INR 1.2 (0.9-1.2) 03/29/18 11:30 - Constitutional Appears: No Acute Distress - Head Exam Head Exam: ATRAUMATIC, NORMAL INSPECTION, NORMOCEPHALIC - Eye Exam Eye Exam: EOMI, Normal appearance, PERRL Pupil Exam: NORMAL ACCOMODATION, PERRL - ENT Exam ENT Exam: Mucous Membranes Moist, Normal Exam - Neck Exam Neck Exam: Full ROM, Normal Inspection. absent: Lymphadenopathy - Respiratory Exam Respiratory Exam: Clear to Ausculation Bilateral, NORMAL BREATHING PATTERN - Cardiovascular Exam Cardiovascular Exam: REGULAR RHYTHM, +S1, +S2. absent: Murmur - GI/Abdominal Exam GI & Abdominal Exam: Soft, Normal Bowel Sounds. absent: Tenderness - Rectal Exam Rectal Exam: NORMAL INSPECTION - Extremities Exam Extremities Exam: Full ROM, Normal Capillary Refill, Normal Inspection. absent : Joint Swelling, Pedal Edema - Back Exam Back Exam: NORMAL INSPECTION - Neurological Exam Neurological Exam: Alert, Awake, CN II-XII Intact, Normal Gait, Oriented x3 - Psychiatric Exam Psychiatric exam: Normal Affect, Normal Mood - Skin Skin Exam: Dry, Intact, Normal Color, Warm Assessment and Plan - Assessment and Plan (Free Text) Assessment: ENDOCARDITIS SEPSIS DM Plan: CONTINUE PRESENT RX WILL HOLD OFF ON PICC LINE SINCE BLOOD CULTURE IS STILL POSITIVE WILL REPEAT BLOOD CULTURE TODAY
--- NOTE | 2018-04-03 11:54 | CP.PCM.PN ---
Subjective - Date & Time of Evaluation Date of Evaluation: 04/03/18 Time of Evaluation: 09:00 - Subjective Subjective: afebrile in NAD persistently + blood c/s noted IV rx reordered need neg cultures b4 placement of PICC will need 6 weeks IV rx Objective - Vital Signs/Intake and Output Vital Signs (last 24 hours): Temp Pulse Resp BP Pulse Ox 97.8 F 91 H 18 146/64 100 04/03/18 08:31 04/03/18 09:00 04/03/18 08:31 04/03/18 08:47 04/03/18 08:31 - Medications Medications: Current Medications Acetaminophen (Tylenol 325mg Tab) 650 mg PO Q6 PRN PRN Reason: Pain, Mild (1-3) Last Admin: 04/02/18 18:41 Dose: 650 mg Aspirin (Ecotrin) 81 mg PO DAILY [facility] Last Admin: 04/03/18 08:47 Dose: 81 mg Atorvastatin Calcium (Lipitor) 20 mg PO DAILY [facility] Last Admin: 04/03/18 08:47 Dose: 20 mg Famotidine (Pepcid) 20 mg PO BID [facility] Last Admin: 04/03/18 08:47 Dose: 20 mg Furosemide (Lasix) 40 mg IV DAILY [facility] Last Admin: 04/03/18 08:46 Dose: 40 mg Ampicillin 2 gm/ Sodium (Chloride) 100 mls @ 100 mls/hr IVPB Q6 [facility] PRN Reason: Protocol Last Admin: 04/03/18 09:17 Dose: 100 mls/hr Ceftriaxone Sodium 1 gm/ (Sodium Chloride) 100 mls @ 100 mls/hr IVPB Q12H [facility] PRN Reason: Protocol Last Admin: 04/03/18 09:17 Dose: 100 mls/hr Insulin Human Regular (Humulin R) 0 units SC ACHS [facility] PRN Reason: Protocol Last Admin: 04/03/18 08:46 Dose: Not Given Metformin HCl (Glucophage) 500 mg PO BIDWM [facility] Last Admin: 04/03/18 08:45 Dose: 500 mg Metoprolol Succinate (Toprol Xl) 25 mg PO DAILY [facility] Last Admin: 04/03/18 08:47 Dose: 25 mg Tamsulosin HCl (Flomax) 0.4 mg PO HS [facility] Last Admin: 04/02/18 21:25 Dose: 0.4 mg Valsartan (Diovan) 40 mg PO DAILY [facility] Last Admin: 04/03/18 08:47 Dose: 40 mg - Labs Labs: 03/30/18 04:25 03/30/18 04:25 PT 12.9 Seconds (9.8-13.1) 03/29/18 11:30 INR 1.2 (0.9-1.2) 03/29/18 11:30 - Constitutional Appears: Non-toxic, Chronically Ill - Head Exam Head Exam: NORMOCEPHALIC - Eye Exam Eye Exam: PERRL - ENT Exam ENT Exam: Mucous Membranes Dry - Neck Exam Neck Exam: absent: Lymphadenopathy - Respiratory Exam Respiratory Exam: Decreased Breath Sounds - Cardiovascular Exam Cardiovascular Exam: REGULAR RHYTHM - GI/Abdominal Exam GI & Abdominal Exam: Distended - Rectal Exam Rectal Exam: Deferred - Exam Exam: NORMAL INSPECTION Assessment and Plan (1) CHF (congestive heart failure) Status: Acute (2) Endocarditis Status: Acute (3) SIRS (systemic inflammatory response syndrome) Status: Acute (4) Urinary tract infection Status: Acute - Assessment and Plan (Free Text) Assessment: persistently + blood c/s noted IV rx reordered need neg cultures b4 placement of PICC will need 6 weeks IV rx
[2018-04-04] MEDS: AMPicillin 2 GM in Sodium Chloride 0.9% 100 ML IVPB SCH ×4 (04:11→21:20)
[2018-04-04] MEDS: Insulin Regular 100 units/ml SC SCH ×4 (06:42→22:00)
--- NOTE | 2018-04-04 09:12 | CP.PCM.PN ---
Subjective - Date & Time of Evaluation Date of Evaluation: 04/04/18 Time of Evaluation: 09:12 - Subjective Subjective: AFEBRILE R LEG SWELLING AND REDNESS PERSIST---DOPPLER STUDIES NEGATIVE FOR DVT Objective - Vital Signs/Intake and Output Vital Signs (last 24 hours): Temp Pulse Resp BP Pulse Ox 97.8 F 92 H 18 149/64 99 04/04/18 08:00 04/04/18 08:00 04/04/18 08:00 04/04/18 08:00 04/04/18 08:00 - Medications Medications: Current Medications Acetaminophen (Tylenol 325mg Tab) 650 mg PO Q6 PRN PRN Reason: Pain, Mild (1-3) Last Admin: 04/03/18 19:05 Dose: 650 mg Aspirin (Ecotrin) 81 mg PO DAILY [facility] Last Admin: 04/03/18 08:47 Dose: 81 mg Atorvastatin Calcium (Lipitor) 20 mg PO DAILY [facility] Last Admin: 04/03/18 08:47 Dose: 20 mg Famotidine (Pepcid) 20 mg PO BID [facility] Last Admin: 04/03/18 16:37 Dose: 20 mg Furosemide (Lasix) 40 mg IV DAILY [facility] Last Admin: 04/03/18 08:46 Dose: 40 mg Ampicillin 2 gm/ Sodium (Chloride) 100 mls @ 100 mls/hr IVPB Q6 [facility] PRN Reason: Protocol Last Admin: 04/04/18 04:11 Dose: 100 mls/hr Ceftriaxone Sodium 1 gm/ (Sodium Chloride) 100 mls @ 100 mls/hr IVPB Q12H [facility] PRN Reason: Protocol Last Admin: 04/03/18 21:48 Dose: 100 mls/hr Insulin Human Regular (Humulin R) 0 units SC ACHS [facility] PRN Reason: Protocol Last Admin: 04/04/18 06:42 Dose: Not Given Metformin HCl (Glucophage) 500 mg PO BIDWM [facility] Last Admin: 04/03/18 16:37 Dose: 500 mg Metoprolol Succinate (Toprol Xl) 25 mg PO DAILY [facility] Last Admin: 04/03/18 08:47 Dose: 25 mg Tamsulosin HCl (Flomax) 0.4 mg PO HS [facility] Last Admin: 04/03/18 21:44 Dose: 0.4 mg Valsartan (Diovan) 40 mg PO DAILY [facility] Last Admin: 04/03/18 08:47 Dose: 40 mg - Labs Labs: 03/30/18 04:25 03/30/18 04:25 PT 12.9 Seconds (9.8-13.1) 03/29/18 11:30 INR 1.2 (0.9-1.2) 03/29/18 11:30 - Constitutional Appears: No Acute Distress - Head Exam Head Exam: ATRAUMATIC, NORMAL INSPECTION, NORMOCEPHALIC - Eye Exam Eye Exam: EOMI, Normal appearance, PERRL Pupil Exam: NORMAL ACCOMODATION, PERRL - ENT Exam ENT Exam: Mucous Membranes Moist, Normal Exam - Neck Exam Neck Exam: Full ROM, Normal Inspection. absent: Lymphadenopathy - Respiratory Exam Respiratory Exam: Clear to Ausculation Bilateral, NORMAL BREATHING PATTERN - Cardiovascular Exam Cardiovascular Exam: REGULAR RHYTHM, +S1, +S2. absent: Murmur - GI/Abdominal Exam GI & Abdominal Exam: Soft, Normal Bowel Sounds. absent: Tenderness - Rectal Exam Rectal Exam: NORMAL INSPECTION - Extremities Exam Extremities Exam: Full ROM, Normal Capillary Refill, Normal Inspection, Pedal Edema. absent: Joint Swelling - Back Exam Back Exam: NORMAL INSPECTION - Neurological Exam Neurological Exam: Alert, Awake, CN II-XII Intact, Normal Gait, Oriented x3 - Psychiatric Exam Psychiatric exam: Normal Affect, Normal Mood - Skin Skin Exam: Dry, Intact, Normal Color, Warm Assessment and Plan - Assessment and Plan (Free Text) Assessment: ENDOCARDITIS CELLULITIS OF R LEG HTN DM UTI Plan: CONTINUE RX ORDERED WILL NEED NEGATIVE BLOOD CULTURES PRIOR TO PLACEMENT OF PICC LINE ELEVATE R LEG WITH A PILLOW
[2018-04-04] MEDS: Metoprolol Succinate 25 mg XL Tab PO SCH (09:23)
[2018-04-04 15:59] LABS: MEAN CORPUSCULAR HEMOGLOBIN 27.3 pg (27.0-31.0); MEAN CORPUSCULAR HGB CONC 33.3 g/dL (33.0-37.0); RBC 3.28 Mil/uL (4.40-5.90); RED CELL DISTRIBUTION WIDTH 17.8 % (11.5-14.5); WHITE BLOOD COUNT 6.8 K/uL (4.8-10.8)
[2018-04-04 16:34] LABS: BLOOD UREA NITROGEN 14 mg/dl (9-20); CALCIUM 8.5 mg/dL (8.4-10.2); GFR AFRICAN-AMERICAN > 60; GFR NON-AFRICAN AMERICAN > 60
[2018-04-05] MEDS: AMPicillin 2 GM in Sodium Chloride 0.9% 100 ML IVPB SCH ×4 (04:24→21:02)
[2018-04-05 05:46] LABS: BASO % 0.3 % (0.0-2.0); EOS % 0.6 % (0.0-4.0); HEMOGLOBIN 9.1 g/dL (12.0-18.0); LYMPH # 1.1 K/uL (1.0-4.3); LYMPH % 15.8 % (20.0-40.0); MEAN CELL VOLUME 81.6 fl (80.0-94.0); MEAN CORPUSCULAR HEMOGLOBIN 27.1 pg (27.0-31.0); MEAN CORPUSCULAR HGB CONC 33.1 g/dL (33.0-37.0); MEAN PLATELET VOLUME 7.7 fl (7.2-11.7); MONO # 0.5 K/uL (0.0-0.8); MONO % 7.1 % (0.0-10.0); NEUT # 5.1 K/uL (1.8-7.0); NEUT % 76.2 % (50.0-75.0); RBC 3.35 Mil/uL (4.40-5.90); RED CELL DISTRIBUTION WIDTH 17.7 % (11.5-14.5); WHITE BLOOD COUNT 6.8 K/uL (4.8-10.8)
[2018-04-05 05:55] LABS: B-TYPE NATRIURETIC PEPTIDE 1430 pg/ml (0-900); BLOOD UREA NITROGEN 13 mg/dl (9-20); CALCIUM 8.8 mg/dL (8.4-10.2); GFR AFRICAN-AMERICAN > 60; GFR NON-AFRICAN AMERICAN > 60
[2018-04-05] MEDS: Insulin Regular 100 units/ml SC SCH ×4 (07:04→23:36)
--- NOTE | 2018-04-05 08:33 | CP.PCM.PN ---
Subjective - Date & Time of Evaluation Date of Evaluation: 04/05/18 Time of Evaluation: 08:36 - Subjective Subjective: NO NEW CLINICAL FINDINGS Objective - Vital Signs/Intake and Output Vital Signs (last 24 hours): Temp Pulse Resp BP Pulse Ox 98.0 F 84 18 133/56 L 100 04/05/18 07:58 04/05/18 07:58 04/05/18 07:58 04/05/18 07:58 04/05/18 07:58 - Medications Medications: Current Medications Acetaminophen (Tylenol 325mg Tab) 650 mg PO Q6 PRN PRN Reason: Pain, Mild (1-3) Last Admin: 04/05/18 06:07 Dose: 650 mg Aspirin (Ecotrin) 81 mg PO DAILY [facility] Last Admin: 04/04/18 09:24 Dose: 81 mg Atorvastatin Calcium (Lipitor) 20 mg PO DAILY [facility] Last Admin: 04/04/18 09:23 Dose: 20 mg Enoxaparin Sodium (Lovenox) 40 mg SC DAILY [facility] PRN Reason: Protocol Famotidine (Pepcid) 20 mg PO BID [facility] Last Admin: 04/04/18 16:42 Dose: 20 mg Furosemide (Lasix) 40 mg IV Q12 [facility] Last Admin: 04/04/18 21:21 Dose: 40 mg Ampicillin 2 gm/ Sodium (Chloride) 100 mls @ 100 mls/hr IVPB Q6 [facility] PRN Reason: Protocol Last Admin: 04/05/18 04:24 Dose: 100 mls/hr Ceftriaxone Sodium 1 gm/ (Sodium Chloride) 100 mls @ 100 mls/hr IVPB Q12H [facility] PRN Reason: Protocol Last Admin: 04/04/18 22:29 Dose: 100 mls/hr Insulin Human Regular (Humulin R) 0 units SC ACHS [facility] PRN Reason: Protocol Last Admin: 04/05/18 07:04 Dose: Not Given Metformin HCl (Glucophage) 500 mg PO BIDWM [facility] Last Admin: 04/04/18 16:42 Dose: 500 mg Metoprolol Succinate (Toprol Xl) 25 mg PO DAILY [facility] Last Admin: 04/04/18 09:23 Dose: 25 mg Tamsulosin HCl (Flomax) 0.4 mg PO HS [facility] Last Admin: 04/04/18 21:21 Dose: 0.4 mg Valsartan (Diovan) 40 mg PO DAILY [facility] Last Admin: 04/04/18 09:24 Dose: 40 mg - Labs Labs: 04/05/18 04:20 04/05/18 04:20 PT 12.9 Seconds (9.8-13.1) 03/29/18 11:30 INR 1.2 (0.9-1.2) 03/29/18 11:30 - Constitutional Appears: No Acute Distress - Head Exam Head Exam: ATRAUMATIC, NORMAL INSPECTION, NORMOCEPHALIC - Eye Exam Eye Exam: EOMI, Normal appearance, PERRL Pupil Exam: NORMAL ACCOMODATION, PERRL - ENT Exam ENT Exam: Mucous Membranes Moist, Normal Exam - Neck Exam Neck Exam: Full ROM, Normal Inspection. absent: Lymphadenopathy - Respiratory Exam Respiratory Exam: Clear to Ausculation Bilateral, NORMAL BREATHING PATTERN - Cardiovascular Exam Cardiovascular Exam: REGULAR RHYTHM, +S1, +S2. absent: Murmur - GI/Abdominal Exam GI & Abdominal Exam: Soft, Normal Bowel Sounds. absent: Tenderness - Rectal Exam Rectal Exam: NORMAL INSPECTION - Extremities Exam Extremities Exam: Full ROM, Normal Capillary Refill, Normal Inspection, Pedal Edema. absent: Joint Swelling - Back Exam Back Exam: NORMAL INSPECTION - Neurological Exam Neurological Exam: Alert, Awake, CN II-XII Intact, Normal Gait, Oriented x3 - Psychiatric Exam Psychiatric exam: Normal Affect, Normal Mood - Skin Skin Exam: Dry, Intact, Normal Color, Warm Assessment and Plan - Assessment and Plan (Free Text) Assessment: ACUTE BACTERIA ENDOCARDITIS ANEMIA DM HTN Plan: CONTINUE IV ANTIBIOTIC RX WILL NEED PICC LINE IF CULTURES ARE NEGATIVE IN AM
[2018-04-05] MEDS: Metoprolol Succinate 25 mg XL Tab PO SCH (09:59)
[2018-04-05] MEDS ORDERED: Enoxaparin 40 mg Syringe SC SCH (10:15)
[2018-04-05] MEDS ORDERED: Sodium Chloride 3% for Inhalation 4 ML VIAL.NEB IH PRN (15:02)
--- NOTE | 2018-04-05 18:17 | RAD ---
HISTORY: shortness of breath COMPARISON: 03/30/2018. TECHNIQUE: Chest PA and lateral FINDINGS: LUNGS: Persistent consolidative changes particularly at left base. PLEURA: Stable bilateral pleural effusions left larger than right. CARDIOVASCULAR: Cardiomegaly/ acute CHF. OSSEOUS STRUCTURES: No significant abnormalities. VISUALIZED UPPER ABDOMEN: Normal. OTHER FINDINGS: None. IMPRESSION: Acute CHF.
[2018-04-05 18:50] LABS: HEMOGLOBIN 8.7 g/dL (12.0-18.0); MEAN CELL VOLUME 82.9 fl (80.0-94.0); MEAN CORPUSCULAR HEMOGLOBIN 26.9 pg (27.0-31.0); MEAN CORPUSCULAR HGB CONC 32.4 g/dL (33.0-37.0); RBC 3.24 Mil/uL (4.40-5.90); RED CELL DISTRIBUTION WIDTH 17.4 % (11.5-14.5); WHITE BLOOD COUNT 7.3 K/uL (4.8-10.8)
[2018-04-05 19:18] LABS: INR 1.3 (0.9-1.2)
[2018-04-05 19:19] LABS: PROTHROMBIN TIME 14.1 Seconds (9.8-13.1)
--- NOTE | 2018-04-05 20:57 | CP.PCM.PN ---
Subjective - Date & Time of Evaluation Date of Evaluation: 04/05/18 Time of Evaluation: 20:45 - Subjective Subjective: patient seen sitting in the chair. he denies chest pain. states he has dyspnea without supplemental oxygen. Objective - Vital Signs/Intake and Output Vital Signs (last 24 hours): Temp Pulse Resp BP Pulse Ox 97.6 F 93 H 18 156/64 H 98 04/05/18 19:49 04/05/18 19:49 04/05/18 19:49 04/05/18 19:49 04/05/18 19:49 Intake and Output: 04/05/18 04/06/18 18:59 06:59 Intake Total 1350 Balance 1350 - Medications Medications: Current Medications Acetaminophen (Tylenol 325mg Tab) 650 mg PO Q6 PRN PRN Reason: Pain, Mild (1-3) Last Admin: 04/05/18 06:07 Dose: 650 mg Aspirin (Ecotrin) 81 mg PO DAILY [facility] Last Admin: 04/05/18 09:58 Dose: 81 mg Atorvastatin Calcium (Lipitor) 20 mg PO DAILY@2200 [facility] Famotidine (Pepcid) 20 mg PO BID [facility] Last Admin: 04/05/18 17:17 Dose: 20 mg Furosemide (Lasix) 40 mg IV Q12 [facility] Last Admin: 04/05/18 09:58 Dose: 40 mg Ampicillin 2 gm/ Sodium (Chloride) 100 mls @ 100 mls/hr IVPB Q6 [facility] PRN Reason: Protocol Last Admin: 04/05/18 17:15 Dose: 100 mls/hr Ceftriaxone Sodium 1 gm/ (Sodium Chloride) 100 mls @ 100 mls/hr IVPB Q12H [facility] PRN Reason: Protocol Last Admin: 04/05/18 09:56 Dose: 100 mls/hr Insulin Human Regular (Humulin R) 0 units SC ACHS [facility] PRN Reason: Protocol Last Admin: 04/05/18 17:17 Dose: Not Given Metformin HCl (Glucophage) 500 mg PO BIDWM [facility] Last Admin: 04/05/18 17:16 Dose: 500 mg Metoprolol Succinate (Toprol Xl) 25 mg PO DAILY [facility] Last Admin: 04/05/18 09:59 Dose: 25 mg Tamsulosin HCl (Flomax) 0.4 mg PO HS [facility] Last Admin: 04/04/18 21:21 Dose: 0.4 mg Valsartan (Diovan) 40 mg PO DAILY [facility] Last Admin: 04/05/18 09:58 Dose: 40 mg - Labs Labs: 04/05/18 18:25 04/05/18 04:20 PT 14.1 Seconds (9.8-13.1) H 04/05/18 18:25 INR 1.3 (0.9-1.2) H 04/05/18 18:25 - Constitutional Appears: Non-toxic - Head Exam Head Exam: NORMAL INSPECTION - Eye Exam Eye Exam: Normal appearance - ENT Exam ENT Exam: Mucous Membranes Moist - Neck Exam Neck Exam: Full ROM - Respiratory Exam Respiratory Exam: Decreased Breath Sounds - Cardiovascular Exam Cardiovascular Exam: REGULAR RHYTHM, Murmur - GI/Abdominal Exam GI & Abdominal Exam: Normal Bowel Sounds - Rectal Exam Rectal Exam: Deferred - Extremities Exam Extremities Exam: Normal Capillary Refill, Pedal Edema - Back Exam Back Exam: NORMAL INSPECTION - Neurological Exam Neurological Exam: Alert, Oriented x3 - Psychiatric Exam Psychiatric exam: Normal Affect Assessment and Plan (1) CHF (congestive heart failure) Assessment & Plan: patient has mild volume overload likely due to vlavular regurgitation from endocarditis. Status: Acute (2) Endocarditis Assessment & Plan: E, Faecalis. on antibiotic therapy.I reviewed the repeat echocardiogram. lareg vegetation agian is noted on the aortic valve with regurgitation. Further discussion with the patient and his on the phone regarding management including surgery. I recommend surgery at this time and the patient and agree. I will discuss with CT surgery, matthieu transfer 04/08/18 for cardiac cath and aortic valve surgery Status: Acute
--- NOTE | 2018-04-05 21:14 | CARD ---
APPROVED REPORT EXAM: Two-dimensional and M-mode echocardiogram with Doppler and color Doppler. Other Information Quality : GoodRhythm : NSR INDICATION Infection:Subacute bacterial endocarditis Valve Rupture 2D DIMENSIONS IVSd1.41 (0.7-1.1cm)LVDd5.21 (3.9-5.9cm) LVOT Diameter2.17 (1.8-2.4cm)PWd0.69 (0.7-1.1cm) IVSs1.36 (0.8-1.2cm)LVDs3.42 (2.5-4.0cm) FS (%) 34.3 %PWs1.19 (0.8-1.2cm) Aortic Valve AI P 1/2 [id number] Mitral Valve E/A ratio0.0 TDI E/Lateral E'0.0E/Medial E'0.0 LEFT VENTRICLE The left ventricle is normal size. There is mild concentric left ventricular hypertrophy. The systolic function is mildly impaired. Infero-Lateral hypokinesis Transmitral Doppler flow pattern is Grade I-abnormal relaxation pattern. RIGHT VENTRICLE The right ventricle is normal size. There is normal right ventricular wall thickness. The right ventricular systolic function is normal. ATRIA The left atrium size is normal. The right atrium size is normal. AORTIC VALVE There is large size pro;apsing aortic valvular vegetation. There is severe aortic regurgitation. There is no aortic valvular stenosis. MITRAL VALVE A small Mitral vegitation of the posterior leaflet can not be ruled out There is no mitral valve stenosis. Mitral regurgitation is mild. TRICUSPID VALVE The tricusped valve is thickened. There is no tricuspid valve regurgitation noted. PULMONIC VALVE The pulmonary valve is normal in structure. There is no pulmonic valvular regurgitation. GREAT VESSELS The aortic root is normal in size. The IVC was not visualized. PERICARDIAL EFFUSION There is a small circumferential pericardial effusion. <Conclusion> There is large size pro;apsing aortic valvular vegetation. There is severe aortic regurgitation. Slightly worse compared to a recent study A small Mitral vegitation of the posterior leaflet can not be ruled out, Mitral regurgitation is mild.
[2018-04-06] MEDS: AMPicillin 2 GM in Sodium Chloride 0.9% 100 ML IVPB SCH ×5 (04:45→21:07)
[2018-04-06] MEDS: Insulin Regular 100 units/ml SC SCH ×4 (09:21→21:37)
[2018-04-06] MEDS: Metoprolol Succinate 25 mg XL Tab PO SCH (09:23)
--- NOTE | 2018-04-06 09:44 | CP.PCM.PN ---
Subjective - Date & Time of Evaluation Date of Evaluation: 04/06/18 Time of Evaluation: 09:44 - Subjective Subjective: HAD HEMOPTYSIS YESTERDAY STILL HAS DYSPNEA ON MILD EXERTION NO CHEST PAINS REPEAT ECHO REVIEWED CARDIAC RE-EVAL APPRECIATED Objective - Vital Signs/Intake and Output Vital Signs (last 24 hours): Temp Pulse Resp BP Pulse Ox 97.6 F 91 H 20 135/60 100 04/06/18 08:00 04/06/18 09:23 04/06/18 08:00 04/06/18 09:23 04/06/18 08:00 - Medications Medications: Current Medications Acetaminophen (Tylenol 325mg Tab) 650 mg PO Q6 PRN PRN Reason: Pain, Mild (1-3) Last Admin: 04/05/18 21:01 Dose: 650 mg Aspirin (Ecotrin) 81 mg PO DAILY [facility] Last Admin: 04/06/18 09:20 Dose: 81 mg Atorvastatin Calcium (Lipitor) 20 mg PO DAILY@2200 [facility] Last Admin: 04/05/18 21:03 Dose: 20 mg Famotidine (Pepcid) 20 mg PO BID [facility] Last Admin: 04/06/18 09:22 Dose: 20 mg Furosemide (Lasix) 40 mg IV Q12 [facility] Last Admin: 04/06/18 09:21 Dose: 40 mg Ampicillin 2 gm/ Sodium (Chloride) 100 mls @ 100 mls/hr IVPB Q6 [facility] PRN Reason: Protocol Last Admin: 04/06/18 09:19 Dose: 100 mls/hr Ceftriaxone Sodium 1 gm/ (Sodium Chloride) 100 mls @ 100 mls/hr IVPB Q12H [facility] PRN Reason: Protocol Last Admin: 04/06/18 09:22 Dose: 100 mls/hr Insulin Human Regular (Humulin R) 0 units SC ACHS [facility] PRN Reason: Protocol Last Admin: 04/06/18 09:21 Dose: Not Given Metformin HCl (Glucophage) 500 mg PO BIDWM [facility] Last Admin: 04/06/18 09:20 Dose: 500 mg Metoprolol Succinate (Toprol Xl) 25 mg PO DAILY [facility] Last Admin: 04/06/18 09:23 Dose: 25 mg Tamsulosin HCl (Flomax) 0.4 mg PO HS [facility] Last Admin: 04/05/18 21:03 Dose: 0.4 mg Valsartan (Diovan) 40 mg PO DAILY [facility] Last Admin: 04/06/18 09:20 Dose: 40 mg - Labs Labs: 04/05/18 18:25 04/05/18 04:20 PT 14.1 Seconds (9.8-13.1) H 04/05/18 18:25 INR 1.3 (0.9-1.2) H 04/05/18 18:25 - Constitutional Appears: No Acute Distress - Head Exam Head Exam: ATRAUMATIC, NORMAL INSPECTION, NORMOCEPHALIC - Eye Exam Eye Exam: EOMI, Normal appearance, PERRL Pupil Exam: NORMAL ACCOMODATION, PERRL - ENT Exam ENT Exam: Mucous Membranes Moist, Normal Exam - Neck Exam Neck Exam: Full ROM, Normal Inspection. absent: Lymphadenopathy - Respiratory Exam Respiratory Exam: Clear to Ausculation Bilateral, NORMAL BREATHING PATTERN - Cardiovascular Exam Cardiovascular Exam: REGULAR RHYTHM, +S1, +S2, Murmur - GI/Abdominal Exam GI & Abdominal Exam: Soft, Normal Bowel Sounds. absent: Tenderness - Rectal Exam Rectal Exam: NORMAL INSPECTION - Extremities Exam Extremities Exam: Full ROM, Normal Capillary Refill, Normal Inspection. absent : Joint Swelling, Pedal Edema - Back Exam Back Exam: NORMAL INSPECTION - Neurological Exam Neurological Exam: Alert, Awake, CN II-XII Intact, Normal Gait, Oriented x3 - Psychiatric Exam Psychiatric exam: Normal Affect, Normal Mood - Skin Skin Exam: Dry, Intact, Normal Color, Warm Assessment and Plan - Assessment and Plan (Free Text) Assessment: ACUTE BACTERIAL ENDOCARDITIS--?RUPTURED CHORDAE VALVULAR REGURGITATION CHF DM HTN Plan: WILL PROBABLY NEED VALVE REPLACEMENT FOR TRANSFER TO [facility] [place] [place] IN AM
--- NOTE | 2018-04-06 12:43 | CP.PCM.PN ---
Subjective - Date & Time of Evaluation Date of Evaluation: 04/06/18 Time of Evaluation: 09:00 - Subjective Subjective: events noted for transfer to [facility] [place] cont IV rx Objective - Vital Signs/Intake and Output Vital Signs (last 24 hours): Temp Pulse Resp BP Pulse Ox 98.1 F 90 20 145/52 L 98 04/06/18 12:00 04/06/18 12:00 04/06/18 12:00 04/06/18 12:00 04/06/18 12:00 - Medications Medications: Current Medications Acetaminophen (Tylenol 325mg Tab) 650 mg PO Q6 PRN PRN Reason: Pain, Mild (1-3) Last Admin: 04/05/18 21:01 Dose: 650 mg Aspirin (Ecotrin) 81 mg PO DAILY [facility] Last Admin: 04/06/18 09:20 Dose: 81 mg Atorvastatin Calcium (Lipitor) 20 mg PO DAILY@2200 [facility] Last Admin: 04/05/18 21:03 Dose: 20 mg Famotidine (Pepcid) 20 mg PO BID [facility] Last Admin: 04/06/18 09:22 Dose: 20 mg Furosemide (Lasix) 40 mg IV Q12 [facility] Last Admin: 04/06/18 09:21 Dose: 40 mg Ampicillin 2 gm/ Sodium (Chloride) 100 mls @ 100 mls/hr IVPB Q6 [facility] PRN Reason: Protocol Last Admin: 04/06/18 09:19 Dose: 100 mls/hr Ceftriaxone Sodium 1 gm/ (Sodium Chloride) 100 mls @ 100 mls/hr IVPB Q12H [facility] PRN Reason: Protocol Last Admin: 04/06/18 09:22 Dose: 100 mls/hr Insulin Human Regular (Humulin R) 0 units SC ACHS [facility] PRN Reason: Protocol Last Admin: 04/06/18 09:21 Dose: Not Given Metformin HCl (Glucophage) 500 mg PO BIDWM [facility] Last Admin: 04/06/18 09:20 Dose: 500 mg Metoprolol Succinate (Toprol Xl) 25 mg PO DAILY [facility] Last Admin: 04/06/18 09:23 Dose: 25 mg Tamsulosin HCl (Flomax) 0.4 mg PO HS [facility] Last Admin: 04/05/18 21:03 Dose: 0.4 mg Valsartan (Diovan) 40 mg PO DAILY [facility] Last Admin: 04/06/18 09:20 Dose: 40 mg - Labs Labs: 04/05/18 18:25 04/05/18 04:20 PT 14.1 Seconds (9.8-13.1) H 04/05/18 18:25 INR 1.3 (0.9-1.2) H 04/05/18 18:25 - Constitutional Appears: Non-toxic, Chronically Ill - Head Exam Head Exam: NORMOCEPHALIC - Eye Exam Eye Exam: PERRL - ENT Exam ENT Exam: Mucous Membranes Dry - Neck Exam Neck Exam: absent: Lymphadenopathy - Respiratory Exam Respiratory Exam: Decreased Breath Sounds - Cardiovascular Exam Cardiovascular Exam: REGULAR RHYTHM, Murmur - GI/Abdominal Exam GI & Abdominal Exam: Distended - Rectal Exam Rectal Exam: Deferred - Exam Exam: NORMAL INSPECTION - Extremities Exam Extremities Exam: absent: Pedal Edema - Back Exam Back Exam: absent: CVA tenderness (L), CVA tenderness (R) - Neurological Exam Neurological Exam: Alert, Awake, Oriented x3 Neuro motor strength exam: Left Upper Extremity: 4, Right Upper Extremity: 4, Left Lower Extremity: 4, Right Lower Extremity: 4 - Psychiatric Exam Psychiatric exam: Normal Mood - Skin Skin Exam: Dry Assessment and Plan (1) CHF (congestive heart failure) Status: Acute (2) Endocarditis Status: Acute (3) SIRS (systemic inflammatory response syndrome) Status: Acute (4) Urinary tract infection Status: Acute - Assessment and Plan (Free Text) Assessment: cont iv antibiotics for endocarditis
[2018-04-06] MEDS ORDERED: Gentamicin 160 MG in Sodium Chloride 0.9% 100 ML IVPB SCH (13:30)
--- NOTE | 2018-04-06 18:00 | CP.PCM.PN ---
Subjective - Date & Time of Evaluation Date of Evaluation: 04/06/18 Time of Evaluation: 17:45 - Subjective Subjective: patient has no current chest pain. sitting in bed. Objective - Vital Signs/Intake and Output Vital Signs (last 24 hours): Temp Pulse Resp BP Pulse Ox 97.9 F 96 H 20 142/62 91 L 04/06/18 15:42 04/06/18 15:42 04/06/18 15:42 04/06/18 15:42 04/06/18 15:42 Intake and Output: 04/06/18 04/06/18 06:59 18:59 Intake Total 1700 Balance 1700 - Medications Medications: Current Medications Acetaminophen (Tylenol 325mg Tab) 650 mg PO Q6 PRN PRN Reason: Pain, Mild (1-3) Last Admin: 04/05/18 21:01 Dose: 650 mg Aspirin (Ecotrin) 81 mg PO DAILY [facility] Last Admin: 04/06/18 09:20 Dose: 81 mg Atorvastatin Calcium (Lipitor) 20 mg PO DAILY@2200 [facility] Last Admin: 04/05/18 21:03 Dose: 20 mg Famotidine (Pepcid) 20 mg PO BID [facility] Last Admin: 04/06/18 17:09 Dose: 20 mg Furosemide (Lasix) 40 mg IV Q12 MARK Last Admin: 04/06/18 09:21 Dose: 40 mg Ampicillin 2 gm/ Sodium (Chloride) 100 mls @ 100 mls/hr IVPB Q4H MARK PRN Reason: Protocol Last Admin: 04/06/18 17:10 Dose: 100 mls/hr Gentamicin Sulfate 160 mg/ (Sodium Chloride) 104 mls @ 104 mls/hr IVPB Q24H MARK PRN Reason: Protocol Last Admin: 04/06/18 15:44 Dose: 104 mls/hr Insulin Human Regular (Humulin R) 0 units SC ACHS MARK PRN Reason: Protocol Last Admin: 04/06/18 17:14 Dose: Not Given Metformin HCl (Glucophage) 500 mg PO BIDWM [facility] Last Admin: 04/06/18 17:08 Dose: 500 mg Metoprolol Succinate (Toprol Xl) 25 mg PO DAILY [facility] Last Admin: 04/06/18 09:23 Dose: 25 mg Tamsulosin HCl (Flomax) 0.4 mg PO HS [facility] Last Admin: 04/05/18 21:03 Dose: 0.4 mg Valsartan (Diovan) 40 mg PO DAILY MARK Last Admin: 04/06/18 09:20 Dose: 40 mg - Labs Labs: 04/05/18 18:25 04/05/18 04:20 PT 14.1 Seconds (9.8-13.1) H 04/05/18 18:25 INR 1.3 (0.9-1.2) H 04/05/18 18:25 - Constitutional Appears: Non-toxic - Head Exam Head Exam: NORMAL INSPECTION - Eye Exam Eye Exam: Normal appearance - ENT Exam ENT Exam: Mucous Membranes Moist - Neck Exam Neck Exam: Full ROM - Respiratory Exam Respiratory Exam: Decreased Breath Sounds - Cardiovascular Exam Cardiovascular Exam: REGULAR RHYTHM, Murmur - GI/Abdominal Exam GI & Abdominal Exam: Normal Bowel Sounds - Rectal Exam Rectal Exam: Deferred - Extremities Exam Extremities Exam: absent: Pedal Edema - Back Exam Back Exam: NORMAL INSPECTION - Neurological Exam Neurological Exam: Alert - Psychiatric Exam Psychiatric exam: Normal Affect - Skin Skin Exam: Normal Color Assessment and Plan (1) CHF (congestive heart failure) Assessment & Plan: due to valvular regurgitation. recommend transfer for AVR. Status: Acute (2) Endocarditis Assessment & Plan: as above. patient understands Status: Acute
[2018-04-07] MEDS: AMPicillin 2 GM in Sodium Chloride 0.9% 100 ML IVPB SCH ×3 (00:20→08:33)
[2018-04-07 08:04] VITALS: BP 140/70; PULSE 92; RESP 18; TEMP 98.4; O2SAT 99
--- NOTE | 2018-04-07 08:22 | CP.PCM.DIS ---
Provider - Provider Date of Admission: 03/25/18 21:35 Attending physician: Curt Yao MD Time Spent in preparation of Discharge (in minutes): 35 Diagnosis - Discharge Diagnosis (1) Diabetes 1.5, managed as type 2 Status: Acute (2) History of hypertension Status: Acute (3) Anemia Status: Acute (4) CHF (congestive heart failure) Status: Acute (5) Endocarditis Status: Acute (6) SIRS (systemic inflammatory response syndrome) Status: Acute (7) Urinary tract infection Status: Acute (8) Urinary retention Status: Acute (9) Aortic regurgitation Status: Acute (10) Mitral and aortic regurgitation Status: Acute Hospital Course - Lab Results Lab Results: Micro Results 04/03/18 12:08 Blood-Venous Blood Culture - Preliminary NO GROWTH AFTER 3 DAYS 04/03/18 11:54 Blood-Venous Blood Culture - Preliminary NO GROWTH AFTER 3 DAYS 04/01/18 05:00 Blood S.aureus & Coag-Neg Staph PNA FISH - Final 04/01/18 05:00 Blood Blood Culture - Final Enterococcus Faecalis 04/01/18 05:00 Blood Gram Stain - Final 04/01/18 05:05 Blood Blood Culture - Final NO GROWTH AFTER 5 DAYS 04/01/18 05:05 Blood Gram Stain - Final TEST NOT PERFORMED 04/05/18 15:40 Sputum Gram Stain - Final 03/31/18 05:50 Blood-Venous Blood Culture - Final NO GROWTH AFTER 5 DAYS 03/31/18 05:50 Blood-Venous Gram Stain - Final TEST NOT PERFORMED 03/29/18 10:30 Blood Blood Culture - Final Enterococcus Faecalis 03/29/18 10:30 Blood Gram Stain - Final 03/29/18 10:40 Blood S.aureus & Coag-Neg Staph PNA FISH - Final 03/29/18 10:40 Blood Blood Culture - Final Enterococcus Faecalis 03/29/18 10:40 Blood Gram Stain - Final 03/25/18 19:02 Urine Urine Culture - Final No Growth (<1,000 CFU/ML) 03/25/18 20:20 Blood S.aureus & Coag-Neg Staph PNA FISH - Final 03/25/18 20:20 Blood Blood Culture - Final Enterococcus Faecalis 03/25/18 20:20 Blood Gram Stain - Final Most Recent Lab Values WBC 7.3 K/uL (4.8-10.8) 04/05/18 18:25 RBC 3.24 Mil/uL (4.40-5.90) L 04/05/18 18:25 Hgb 8.7 g/dL (12.0-18.0) L 04/05/18 18:25 Hct 26.9 % (35.0-51.0) L 04/05/18 18:25 MCV 82.9 fl (80.0-94.0) 04/05/18 18:25 MCH 26.9 pg (27.0-31.0) L 04/05/18 18:25 MCHC 32.4 g/dL (33.0-37.0) L 04/05/18 18:25 RDW 17.4 % (11.5-14.5) H 04/05/18 18:25 Plt Count 167 K/uL (130-400) 04/05/18 18:25 MPV 7.7 fl (7.2-11.7) 04/05/18 04:20 Neut % (Auto) 76.2 % (50.0-75.0) H 04/05/18 04:20 Lymph % (Auto) 15.8 % (20.0-40.0) L 04/05/18 04:20 [place] % (Auto) 7.1 % (0.0-10.0) 04/05/18 04:20 Eos % (Auto) 0.6 % (0.0-4.0) 04/05/18 04:20 Baso % (Auto) 0.3 % (0.0-2.0) 04/05/18 04:20 Neut # (Auto) 5.1 K/uL (1.8-7.0) 04/05/18 04:20 Lymph # (Auto) 1.1 K/uL (1.0-4.3) 04/05/18 04:20 [place] # (Auto) 0.5 K/uL (0.0-0.8) 04/05/18 04:20 Eos # (Auto) 0.0 K/uL (0.0-0.7) 04/05/18 04:20 Baso # (Auto) 0.0 K/uL (0.0-0.2) 04/05/18 04:20 Neutrophils % (Manual) 86 % (42-75) H 03/25/18 18:11 Lymphocytes % (Manual) 7 % (20-50) L 03/25/18 18:11 Monocytes % (Manual) 7 % (0-10) 03/25/18 18:11 Platelet Estimate Normal (NORMAL) 03/25/18 18:11 Hypochromasia (manual) Slight 03/25/18 18:11 Anisocytosis (manual) Slight 03/25/18 18:11 Ovalocytes Slight 03/25/18 18:11 Schistocytes Slight 03/25/18 18:11 ESR 47 mm/hr (0-20) H 03/28/18 04:30 Retic Count 1.3 % (0.5-1.5) 03/28/18 04:30 PT 14.1 Seconds (9.8-13.1) H 04/05/18 18:25 INR 1.3 (0.9-1.2) H 04/05/18 18:25 pO2 35 mm/Hg (30-55) 03/25/18 22:14 VBG pH 7.46 (7.32-7.43) H 03/25/18 22:14 VBG pCO2 37 mmHg (40-60) L 03/25/18 22:14 VBG HCO3 26.2 mmol/L 03/25/18 22:14 VBG Total CO2 27.4 mmol/L (22-28) 03/25/18 22:14 VBG Base Excess 2.5 mmol/L (0.0-2.0) H 03/25/18 22:14 VBG Potassium 3.8 mmol/L (3.6-5.2) 03/25/18 22:14 Sodium 130.0 mmol/L (132-148) L 03/25/18 22:14 Chloride 99.0 mmol/L (98-107) 03/25/18 22:14 Glucose 178 mg/dL (75-110) H 03/25/18 22:14 Lactate 1.3 mmol/L (0.7-2.1) 03/25/18 22:14 FiO2 21.0 % 03/25/18 22:14 Sodium 135 mmol/l (132-148) 04/05/18 04:20 Potassium 4.0 MMOL/L (3.6-5.0) 04/05/18 04:20 Chloride 92 mmol/L (98-107) L 04/05/18 04:20 Carbon Dioxide 37 mmol/L (22-30) H 04/05/18 04:20 Anion Gap 10 (10-20) 04/05/18 04:20 BUN 13 mg/dl (9-20) 04/05/18 04:20 Creatinine 0.5 mg/dl (0.8-1.5) L 04/05/18 04:20 Est GFR ( Amer) > 60 04/05/18 04:20 Est GFR (Non-Af Amer) > 60 04/05/18 04:20 POC Glucose (mg/dL) 120 mg/dL (65-110) H 04/07/18 05:42 Random Glucose 106 mg/dL (75-110) 04/05/18 04:20 Hemoglobin A1c 6.3 % (4.2-6.5) 03/26/18 04:30 Calcium 8.8 mg/dL (8.4-10.2) 04/05/18 04:20 Ferritin 263.0 ng/Ml (17.9-464) 03/28/18 04:30 Total Bilirubin 0.5 mg/dl (0.2-1.3) 03/25/18 18:11 AST 30 U/L (17-59) 03/25/18 18:11 ALT 42 U/L (21-72) 03/25/18 18:11 Alkaline Phosphatase 80 U/L (38-126) 03/25/18 18:11 Troponin I 0.1360 ng/mL (0.00-0.120) H* 03/26/18 20:30 C-React Prot High Sens > 15.00 mg/L (1.00-3.00) H 03/28/18 04:30 NT-Pro-B Natriuret Pep 1430 pg/ml (0-900) H 04/05/18 04:20 Total Protein 6.5 G/DL (6.3-8.2) 03/25/18 18:11 Albumin 2.9 g/dL (3.5-5.0) L 03/25/18 18:11 Globulin 3.6 gm/dL (2.2-3.9) 03/25/18 18:11 Albumin/Globulin Ratio 0.8 (1.0-2.1) L 03/25/18 18:11 Triglycerides 79 mg/DL (0-149) 03/26/18 04:00 Cholesterol 68 mg/dL (0-199) 03/26/18 04:00 LDL Cholesterol Direct 35 mg/dL (0-129) 03/26/18 04:00 HDL Cholesterol 13 MG/DL (30-70) L 03/26/18 04:00 Vitamin B12 714 pg/mL (239-931) 03/28/18 04:30 Folate 15.8 ng/mL 03/28/18 04:30 Procalcitonin 1.35 NG/ML (0.19-0.49) H 03/28/18 04:30 Venous Blood Potassium 3.8 mmol/L (3.6-5.2) 03/25/18 22:14 Urine Color Yellow (YELLOW) 03/25/18 19:02 Urine Clarity Cloudy (Clear) 03/25/18 19:02 Urine pH 5.0 (5.0-8.0) 03/25/18 19:02 Ur Specific [place] 1.013 (1.003-1.030) 03/25/18 19:02 Urine Protein 100 mg/dL (NEGATIVE) 03/25/18 19:02 Urine Glucose (UA) Neg mg/dL (Normal) 03/25/18 19: Urine Ketones Negative mg/dL (NEGATIVE) 03/25/18 19:02 Urine Blood Large (NEGATIVE) 03/25/18 19:02 Urine Nitrate Negative (NEGATIVE) 03/25/18 19: Urine Bilirubin Negative (NEGATIVE) 03/25/18 19:02 Urine Urobilinogen 0.2-1.0 mg/dL (0.2-1.0) 03/25/18 19:02 Ur Leukocyte Esterase Large Thi/uL (Negative) 03/25/18 19:02 Urine RBC (Auto) 77 /hpf (0-3) H 03/25/18 19:02 Urine Microscopic WBC 41 /hpf (0-5) H 03/25/18 19:02 Ur Squamous Epith Cells 1 /hpf (0-5) 03/25/18 19:02 Urine Bacteria Occ (<OCC) H 03/25/18 19:02 Stool Occult Blood Negative (NEGATIVE) 03/30/18 20:45 Vancomycin Trough 19.0 ug/mL (5.0-10.0) H 03/28/18 04:30 - Hospital Course Hospital Course: STILL HAS SOME 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 Discharge Exam - Head Exam Head Exam: NORMAL INSPECTION - Eye Exam Eye Exam: EOMI, Normal appearance, PERRL Pupil Exam: NORMAL ACCOMODATION, PERRL - Respiratory Exam Respiratory Exam: Decreased Breath Sounds, Rales - Cardiovascular Exam Cardiovascular Exam: REGULAR RHYTHM, Systolic Murmur - GI/Abdominal Exam GI & Abdominal Exam: Normal Bowel Sounds - Rectal Exam Rectal Exam: NORMAL INSPECTION - Extremities Exam Extremities exam: pedal edema - Neurological Exam Neurological exam: Alert, CN II-XII Intact, Normal Gait, Oriented x3, Reflexes Normal - Psychiatric Exam Psychiatric exam: Normal Affect, Normal Mood - Skin Skin Exam: Dry, Intact, Normal Color, Warm Discharge Plan - Follow Up Plan Condition: FAIR Disposition: HOME/ ROUTINE Patient education suggested?: Yes Additional Instructions: [place] [facility] [place] AND POSSIBLE VALVE REPLACEMENT SURGERY CASE DISCUSSED WITH PT AND HIS [id number] Referrals: Curt Yao MD [Family Provider] -
[2018-04-07] MEDS: Insulin Regular 100 units/ml SC SCH (08:34)
[2018-04-07] MEDS: Metoprolol Succinate 25 mg XL Tab PO SCH (08:36)
== END 2018-04-07 16:34 | disposition short-term general hospital (02) | DRG 871 ==
LOC: H.ER 16:47 → H.ERHOLD 21:35 → H.TEL 03-26 01:14
PROVIDERS: ADMIT Internal Medicine Pulmonary Disease; ATTEND Internal Medicine Pulmonary Disease
DX: A41.9 Sepsis, unspecified organism (principal); I33.0 Acute and subacute infective endocarditis; I51.1 Rupture of chordae tendineae, not elsewhere classified; E87.1 Hypo-osmolality and hyponatremia; J90 Pleural effusion, not elsewhere classified; N39.0 Urinary tract infection, site not specified; R04.2 Hemoptysis; L03.115 Cellulitis of right lower limb; D53.9 Nutritional anemia, unspecified; R65.10 Systemic inflammatory response syndrome (SIRS) of non-infectious origin without acute organ dysfunction; I11.0 Hypertensive heart disease with heart failure; I50.9 Heart failure, unspecified; E11.65 Type 2 diabetes mellitus with hyperglycemia; M19.041 Primary osteoarthritis, right hand; M19.042 Primary osteoarthritis, left hand; N40.1 Benign prostatic hyperplasia with lower urinary tract symptoms; R33.8 Other retention of urine; I35.1 Nonrheumatic aortic (valve) insufficiency; I34.0 Nonrheumatic mitral (valve) insufficiency; I77.810 Thoracic aortic ectasia; Z90.79 Acquired absence of other genital organ(s)